=== PATIENT | female | born 1990 | race Caucasian/White ===

== ENCOUNTER 2017-01-07 20:04 | Emergency (ER) | payer OTHER ==
[2017-01-07] MEDS ORDERED: ACETAMINOPHEN 325 MG TABLET PO ONE (21:18)
[2017-01-07] MEDS ORDERED: ONDANSETRON 4 MG TAB.RAPDIS PO ONE (21:18)
--- NOTE | 2017-01-07 21:18 | ER Document Report ---
ED Medical Screen (RME) - General Stated Complaint: HEAD INJURY Mode of Arrival: Ambulatory Information source: Patient Notes: Patient states she hit her head on a freezer door. No loss of consciousness. Patient reports nausea but denies any vomiting. hx: None I have greeted and performed a rapid initial assessment of this patient. A comprehensive ED assessment and evaluation of the patient, analysis of test results and completion of the medical decision making process will be conducted by additional ED providers. TRAVEL OUTSIDE OF THE [place] IN LAST 30 DAYS: No - Related Data Allergies/Adverse Reactions: No Known Allergies Allergy (Verified 01/07/17 21:16) Past Medical History - Past Medical History Cardiac Medical History: Reports: Hx Hypertension - hx of not anymore Denies: Hx Coronary Artery Disease, Hx Heart Attack Pulmonary Medical History: Reports: Hx Bronchitis, Hx Pneumonia Denies: Hx Asthma, Hx COPD Neurological Medical History: Denies: Hx Cerebrovascular Accident, Hx Seizures Endocrine Medical History: Reports: Hx Diabetes Mellitus Type 2 Renal/ Medical History: Reports: Hx Ovarian Cysts - POC GI Medical History: Reports: Hx Irritable Bowel Musculoskeltal Medical History: Denies Hx Arthritis Psychiatric Medical History: Reports: Hx Anxiety, Hx Attention Deficit Hyperactivity Disorder - ADD, Hx Depression Past Surgical History: Reports: Hx Adenoidectomy, Hx Cholecystectomy, Hx Myringotomy, Hx Tonsillectomy. Denies: Hx Hysterectomy - Immunizations Immunizations up to date: Yes Hx Diphtheria, Pertussis, Tetanus Vaccination: Yes Physical Exam - Vital signs Vitals: Temp Pulse BP Pulse Ox 98.3 F 69 144/81 H 100 01/07/17 20:44 01/07/17 20:44 01/07/17 20:44 01/07/17 20:44 - Neurological Orientation: AAOx4 [place] Coma Scale Eye Opening: Spontaneous [place] Coma Scale Verbal: Oriented [place] Coma Scale Motor: Obeys Commands [place] Coma Scale Total: 15 Course - Vital Signs Vital signs: Temp Pulse Resp BP Pulse Ox 98.3 F 69 144/81 H 100 01/07/17 20:44 01/07/17 20:44 01/07/17 20:44 01/07/17 20:44
--- NOTE | 2017-01-08 01:57 | ER Document Report ---
ED General - General Chief Complaint: Head Injury without LOC Stated Complaint: HEAD INJURY Mode of Arrival: Ambulatory Notes: Patient is a 26-year-old female without past medical history, no use of anticoagulation who presents after she struck the right side of her head on the refrigerator door while at work. Since that she accidentally ran into the door and developed an immediate, constant, sharp pain to the area. States pain has gradually improved since that time without intervention. Nothing worsens the pain. States she became lightheaded when she hit her head but did not lose consciousness. No vomiting, weakness or numbness since that time. She has not seen her primary care doctor regarding today's episode. Denies any prior history of similar injury in the past. TRAVEL OUTSIDE OF THE [place] IN LAST 30 DAYS: No - Related Data Allergies/Adverse Reactions: No Known Allergies Allergy (Verified 01/07/17 21:16) Past Medical History - General Information source: Patient - Social History Smoking Status: Current Every Day Smoker Chew tobacco use (# tins/day): No Frequency of alcohol use: Social Drug Abuse: None Lives with: Family Family History: Reviewed & Not Pertinent, CAD, DM, Hyperlipidemia, Hypertension , Malignancy - Past Medical History Cardiac Medical History: Reports: Hx Hypertension - hx of not anymore Denies: Hx Coronary Artery Disease, Hx Heart Attack Pulmonary Medical History: Reports: Hx Bronchitis, Hx Pneumonia Denies: Hx Asthma, Hx COPD Neurological Medical History: Denies: Hx Cerebrovascular Accident, Hx Seizures Endocrine Medical History: Reports: Hx Diabetes Mellitus Type 2 Renal/ Medical History: Reports: Hx Ovarian Cysts - POC. Denies: Hx Peritoneal Dialysis GI Medical History: Reports: Hx Irritable Bowel Musculoskeltal Medical History: Denies Hx Arthritis Psychiatric Medical History: Reports: Hx Anxiety, Hx Attention Deficit Hyperactivity Disorder - ADD, Hx Depression Past Surgical History: Reports: Hx Adenoidectomy, Hx Cholecystectomy, Hx Myringotomy, Hx Tonsillectomy. Denies: Hx Hysterectomy - Immunizations Immunizations up to date: Yes Hx Diphtheria, Pertussis, Tetanus Vaccination: Yes Review of Systems - Review of Systems Notes: Constitutional: Negative for fever. Eyes: Negative for visual changes. ENT: Negative for facial injury Cardiovascular: Negative for chest injury. Respiratory: Negative for shortness of breath. Gastrointestinal: Negative for abdominal injury. Genitourinary: Negative for genital injury Musculoskeletal: Negative for back injury. Skin: Negative for laceration/abrasions. Neurological: Positive for head injury. Physical Exam - Vital signs Vitals: Temp Pulse BP Pulse Ox 98.3 F 69 144/81 H 100 01/07/17 20:44 01/07/17 20:44 01/07/17 20:44 01/07/17 20:44 Interpretation: Normal Notes: PHYSICAL EXAMINATION: GENERAL: Well-appearing, no acute distress. HEAD: Atraumatic, normocephalic. EYES: Pupils equal round and reactive to light, extraocular movements intact, sclera anicteric, conjunctiva are normal. ENT: nares patent, no oral pharyngeal trauma. No hemotympanum, no Mcgee's sign , no raccoon eyes. NECK: No midline cervical spine tenderness. Patient able to move their head to 45 bilaterally without any discomfort. LUNGS: Breath sounds clear to auscultation bilaterally and equal. No wheezes rales or rhonchi. HEART: Regular rate and rhythm without murmurs. EXTREMITIES: no pitting or edema. No long bone deformities. NEUROLOGICAL: Face symmetric. Tongue protrudes midline. Extraocular motions intact. Pupils are 2 mm and equally reactive. Normal speech, normal gait. 5 out of 5 strength in both the distal and proximal upper and lower extremities bilaterally. Sensation is grossly intact throughout. Finger to nose testing normal. Pronator drift normal. PSYCH: Normal mood, normal affect. SKIN: Warm, Dry, normal turgor, no rashes or lesions noted. Course - Re-evaluation Re-evalutation: 01/08/17 01:55 Presentation of head trauma in an otherwise well-appearing patient. No focal neurologic deficits on exam, no evidence of basilar skull fracture on exam without evidence of hemotympanum, raccoon eyes, or periauricular hematoma. No papilledema. Patient is not on anticoagulation. GCS is 15. No loss of consciousness. No episodes of vomiting. Patient is therefore negative via [place] head CT criteria and CT imaging will not be obtained at this time.At this time will discharge with return precautions and follow-up recommendations. Verbal discharge instructions given a the bedside and opportunity for questions given. Medication warnings reviewed. Patient is in agreement with this plan and has verbalized understanding of return precautions and the need for primary care follow-up in the next 24-72 hours. - Vital Signs Vital signs: Temp Pulse Resp BP Pulse Ox 97.8 F 79 16 128/73 H 99 01/08/17 02:27 01/08/17 02:27 01/08/17 02:27 01/08/17 02:27 01/08/17 02:27 Discharge - Discharge Clinical Impression: Head trauma Qualifiers: Encounter type: initial encounter Qualified Code(s): S09.90XA - Unspecified injury of head, initial encounter Condition: Good Disposition: HOME, SELF-CARE Additional Instructions: You have likely sustained a contusion (bruise) to your head. Symptoms to expect from a concussion include nausea, mild to moderate headache, difficulty concentrating or sleeping, and mild lightheadedness. These symptoms should improve over the next few days to weeks. Return to the emergency department or follow-up with your primary care doctor if your symptoms are not improving over this time. Signs of a more serious head injury include vomiting, severe headache, excessive sleepiness or confusion, and weakness or numbness in your face, arms or legs. Return immediately to the Emergency Department if you experience any of these more concerning symptoms. Rest, avoid strenuous physical or mental activity, and avoid activities that could potentially result in another head injury until all your symptoms from this head injury are completely resolved for at least 2-3 weeks. If you participate in sports, get cleared by your doctor or senior trainer before returning to play. You may take ibuprofen or acetaminophen over the counter according to label instructions for mild headache or scalp soreness. Forms: Return to Work
[2017-01-08 02:28] VITALS: BP 128/73
== END 2017-01-08 02:30 | disposition home or self-care (01) ==
LOC: ER 20:04
DX: S09.90XA Unspecified injury of head, initial encounter (principal); W22.09XA Striking against other stationary object, initial encounter; Y99.0 Civilian activity done for income or pay; R42 Dizziness and giddiness; I10 Essential (primary) hypertension; E11.9 Type 2 diabetes mellitus without complications; F17.200 Nicotine dependence, unspecified, uncomplicated
CPT/HCPCS: 99283; S0119

== ENCOUNTER 2017-02-11 11:23 | Emergency (ER) | payer OTHER ==
--- NOTE | 2017-02-11 11:27 | ER Document Report ---
ED Medical Screen (RME) - General Mode of Arrival: Ambulatory Information source: Patient TRAVEL OUTSIDE OF THE [place] IN LAST 30 DAYS: No - General Stated Complaint: RIGHT SHOULDER PAIN Notes: Patient presents emergency department with complaints of right shoulder pain for the past couple weeks. Denies trauma. 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 I have greeted and performed a rapid initial assessment of this patient. A comprehensive ED assessment and evaluation of the patient, analysis of test results and completion of the medical decision making process will be conducted by additional ED providers. (CHIO ALEXANDRA) - Related Data Allergies/Adverse Reactions: No Known Allergies Allergy (Verified 02/11/17 11:27) Past Medical History - Past Medical History Cardiac Medical History: Reports: Hx Hypertension - hx of not anymore Denies: Hx Coronary Artery Disease, Hx Heart Attack Pulmonary Medical History: Reports: Hx Bronchitis, Hx Pneumonia Denies: Hx Asthma, Hx COPD Neurological Medical History: Denies: Hx Cerebrovascular Accident, Hx Seizures Endocrine Medical History: Reports: Hx Diabetes Mellitus Type 2 Renal/ Medical History: Reports: Hx Ovarian Cysts - POC. Denies: Hx Peritoneal Dialysis GI Medical History: Reports: Hx Irritable Bowel Musculoskeltal Medical History: Denies Hx Arthritis Psychiatric Medical History: Reports: Hx Anxiety, Hx Attention Deficit Hyperactivity Disorder - ADD, Hx Depression Past Surgical History: Reports: Hx Adenoidectomy, Hx Cholecystectomy, Hx Myringotomy, Hx Tonsillectomy. Denies: Hx Hysterectomy - Immunizations Immunizations up to date: Yes Hx Diphtheria, Pertussis, Tetanus Vaccination: Yes Doctor's Discharge - Discharge Clinical Impression: Neuropathy Condition: Stable Disposition: HOME, SELF-CARE Additional Instructions: You have been seen and evaluated for neck pain shoulder pain elbow pain and wrist pain. You have a history of problems with your neck before he got that they wanted to do an MRI for. I believe that you have a pinched nerve somewhere from your neck down anterior hand. You have no acute vascular compromise suggesting that the vein or the artery is compromised. I want you to follow back up with your primary care physician this week that had ordered the previous EMG, and ascertain whether or not you need to have an MRI of your neck. Return to the emergency department sooner for increasing worsening or new symptoms
[2017-02-11 11:28] VITALS: BP 152/94
--- NOTE | 2017-02-11 11:45 | ER Document Report ---
ED Extremity Problem, Upper - General Time seen by provider: 11:45 Mode of Arrival: Ambulatory Information source: Patient TRAVEL OUTSIDE OF THE [place] IN LAST 30 DAYS: No - HPI Patient complains to provider of: Pain, Right, Arm, Elbow, Hand, Shoulder Onset: Other - see HPI note Associated symptoms: Numbness, Tingling Exacerbated by: Movement, Exertion - General Chief Complaint: Shoulder Pain Stated Complaint: RIGHT SHOULDER PAIN Notes: Patient is a 26 year old female presenting to the ED for a burning, numbness, and tingling sensation in her right arm. Patient states that her arm "falls asleep" all the time and goes numb into her fingers (thumb, index, and middle). Patient states that she uses her right arm a lot at work. Patient states her symptoms were worse while she was . Patient states her pain also gets worse with movement and use of her arm. Patient states the pain and numbness radiates from her shoulder down into her fingers. Patient's pain wakes her up at night. patient denies any weakness, blue fingers, or cold fingers. Patient has a history of neck problems and states she is supposed to get and MRI. Patient has not gotten this yet because she was . Patient has no known allergies. (FERMÍN MORSE) - Related Data Allergies/Adverse Reactions: No Known Allergies Allergy (Verified 02/11/17 11:27) Past Medical History - General Information source: Patient - Social History Smoking Status: Current Every Day Smoker Chew tobacco use (# tins/day): No Frequency of alcohol use: Social Drug Abuse: None Family History: Reviewed & Not Pertinent, CAD, DM, Hyperlipidemia, Hypertension , Malignancy Patient has suicidal ideation: No Patient has homicidal ideation: No - Past Medical History Cardiac Medical History: Reports: Hx Hypertension - hx of not anymore Pulmonary Medical History: Reports: Hx Bronchitis, Hx Pneumonia Endocrine Medical History: Reports: Hx Diabetes Mellitus Type 2 Renal/ Medical History: Reports: Hx Ovarian Cysts - POC GI Medical History: Reports: Hx Irritable Bowel Psychiatric Medical History: Reports: Hx Anxiety, Hx Attention Deficit Hyperactivity Disorder - ADD, Hx Depression Past Surgical History: Reports: Hx Adenoidectomy, Hx Cholecystectomy, Hx Myringotomy, Hx Tonsillectomy - Immunizations Immunizations up to date: Yes Hx Diphtheria, Pertussis, Tetanus Vaccination: Yes Review of Systems - Review of Systems Constitutional: No symptoms reported EENT: No symptoms reported Cardiovascular: No symptoms reported Respiratory: No symptoms reported Gastrointestinal: No symptoms reported Genitourinary: No symptoms reported Female Genitourinary: No symptoms reported Musculoskeletal: See HPI Skin: No symptoms reported Hematologic/Lymphatic: No symptoms reported Neurological/Psychological: See HPI, Numbness, Tingling -: Yes All other systems reviewed and negative Physical Exam - Vital signs Interpretation: Normal - General General appearance: Appears well, Alert In distress: Mild - HEENT Head: Normocephalic, Atraumatic Eyes: Normal Pupils: PERRL Mucous membranes: Moist - Respiratory Respiratory status: No respiratory distress Chest status: Nontender Breath sounds: Normal Chest palpation: Normal - Cardiovascular Rhythm: Regular Heart sounds: Normal auscultation Murmur: No - Abdominal Inspection: Normal Distension: No distension Bowel sounds: Normal Tenderness: Nontender Organomegaly: No organomegaly - Back Back: Normal, Nontender - Extremities General upper extremity: Normal inspection, Normal ROM, Normal strength General lower extremity: Normal inspection, Normal ROM, Normal strength - Neurological Neuro grossly intact: Yes Cognition: Normal Orientation: AAOx4 [place] Coma Scale Eye Opening: Spontaneous [place] Coma Scale Verbal: Oriented [place] Coma Scale Motor: Obeys Commands [place] Coma Scale Total: 15 Speech: Normal Sensory: Normal - Psychological Associated symptoms: Normal affect, Normal mood - Skin Skin Temperature: Warm Skin Moisture: Dry Discharge - Discharge Clinical Impression: Neuropathy Condition: Stable Disposition: HOME, SELF-CARE Additional Instructions: You have been seen and evaluated for neck pain shoulder pain elbow pain and wrist pain. You have a history of problems with your neck before he got that they wanted to do an MRI for. I believe that you have a pinched nerve somewhere from your neck down anterior hand. You have no acute vascular compromise suggesting that the vein or the artery is compromised. I want you to follow back up with your primary care physician this week that had ordered the previous EMG, and ascertain whether or not you need to have an MRI of your neck. Return to the emergency department sooner for increasing worsening or new symptoms Scribe Documentation - Scribe Written by Naomie:: Fermín Morse 02/11/17 17:22 acting as scribe for :: Cb
== END 2017-02-11 12:33 | disposition home or self-care (01) ==
LOC: ER 11:23
DX: E11.40 Type 2 diabetes mellitus with diabetic neuropathy, unspecified (principal); R20.0 Anesthesia of skin; R20.2 Paresthesia of skin; F17.200 Nicotine dependence, unspecified, uncomplicated
CPT/HCPCS: 99283

== ENCOUNTER 2017-02-21 10:41 | Emergency (ER) | payer OTHER ==
--- NOTE | 2017-02-21 11:46 | ER Document Report ---
ED Medical Screen (RME) - General Chief Complaint: Syncope Stated Complaint: BACK,NECK PAIN Notes: This 26-year-old female patient reports passing out twice when standing. 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 She is scheduled for a spine MRI next week [facility]. Last night she "felt like I would pass out and rushed to the bed", she fell onto her bed. This morning she felt similarly and fell into her mother's arms. She complains of feeling weak and rubbery. I have greeted and performed a rapid initial assessment of this patient. A comprehensive ED assessment and evaluation of the patient, analysis of test results and completion of the medical decision making process will be conducted by additional ED providers. TRAVEL OUTSIDE OF THE [place] IN LAST 30 DAYS: No - Related Data Allergies/Adverse Reactions: No Known Allergies Allergy (Verified 02/21/17 11:14) Home Medications: Current Home Medications Cyclobenzaprine HCl 10 mg PO QHS 02/21/17 [History] Past Medical History - Past Medical History Cardiac Medical History: Reports: Hx Hypertension - hx of not anymore Denies: Hx Coronary Artery Disease, Hx Heart Attack Pulmonary Medical History: Reports: Hx Bronchitis, Hx Pneumonia Denies: Hx Asthma, Hx COPD Neurological Medical History: Denies: Hx Cerebrovascular Accident, Hx Seizures Endocrine Medical History: Reports: Hx Diabetes Mellitus Type 2 Renal/ Medical History: Reports: Hx Ovarian Cysts - POC. Denies: Hx Peritoneal Dialysis GI Medical History: Reports: Hx Irritable Bowel Musculoskeltal Medical History: Denies Hx Arthritis Psychiatric Medical History: Reports: Hx Anxiety, Hx Attention Deficit Hyperactivity Disorder - ADD, Hx Depression Past Surgical History: Reports: Hx Adenoidectomy, Hx Cholecystectomy, Hx Myringotomy, Hx Tonsillectomy. Denies: Hx Hysterectomy - Immunizations Immunizations up to date: Yes Hx Diphtheria, Pertussis, Tetanus Vaccination: Yes Physical Exam - Vital signs Vitals: Temp Pulse Resp BP Pulse Ox 99.0 F 95 16 131/77 H 97 02/21/17 11:15 02/21/17 11:15 02/21/17 11:15 02/21/17 11:15 02/21/17 11:15 Course - Vital Signs Vital signs: Temp Pulse Resp BP Pulse Ox 99.0 F 95 16 131/77 H 97 02/21/17 11:15 02/21/17 11:15 02/21/17 11:15 02/21/17 11:15 02/21/17 11:15
[2017-02-21 12:32] LABS: ABSOLUTE BASOPHILS # (AUTO) 0.1 10^3/uL (0.0-0.2); ABSOLUTE EOSINOPHILS # (AUTO) 0.2 10^3/uL (0.0-0.6); ABSOLUTE LYMPHOCYTES (AUTO) 3.3 10^3/uL (0.5-4.7); ABSOLUTE MONOCYTES (AUTO) 0.6 10^3/uL (0.1-1.4); ABSOLUTE NEUT (AUTO) 7.4 10^3/uL (1.7-8.2); BASOPHILS % (AUTO) 0.5 % (0-2); EOSINOPHILS % (AUTO) 1.6 % (0-6); HEMATOCRIT 44.2 % (36.0-47.0); HEMOGLOBIN 14.7 g/dL (12.0-15.5); HGB HCT DIFFERENCE -0.1; LYMPHOCYTES % (AUTO) 28.6 % (13-45); MEAN CORPUSCULAR HEMOGLOBIN 29.9 pg (27.0-33.4); MEAN CORPUSCULAR HGB CONC 33.3 g/dL (32.0-36.0); MEAN CORPUSCULAR VOLUME 90 fl (80-97); MONOCYTES % (AUTO) 5.1 % (3-13); RED BLOOD COUNT 4.91 10^6/uL (3.72-5.28); RED CELL DISTRIBUTION WIDTH 13.9 % (11.5-14.0); SEGMENTED NEUTROPHILS % (AUTO) 64.2 % (42-78); WHITE BLOOD COUNT 11.5 10^3/uL (4.0-10.5)
[2017-02-21 12:44] LABS: ALANINE AMINOTRANSFERASE 23 U/L (9-52); ALBUMIN 3.9 g/dL (3.5-5.0); ALKALINE PHOSPHATASE 60 U/L (38-126); ANION GAP 7 (5-19); APPEARANCE,URINE SLIGHTLY-CLOUDY; ASPARTATE AMINO TRANSFERASE 13 U/L (14-36); BILIRUBIN,DIRECT 0.1 mg/dL (0.0-0.4); BILIRUBIN,TOTAL 0.3 mg/dL (0.2-1.3); BILIRUBIN,URINE NEGATIVE (NEGATIVE); BLOOD UREA NITROGEN 12 mg/dL (7-20); CALCIUM 9.3 mg/dL (8.4-10.2); CARBON DIOXIDE 29 mmol/L (22-30); CHLORIDE 106 mmol/L (98-107); CREATININE RESULT 0.79 mg/dL (0.52-1.25); GLUCOSE 86 mg/dL (75-110); GLUCOSE, URINE NEGATIVE (NEGATIVE); KETONES,URINE NEGATIVE (NEGATIVE); LEUKOCYTE ESTERASE,URINE TRACE (NEGATIVE); NITRITE,URINE POSITIVE (NEGATIVE); POTASSIUM 4.1 mmol/L (3.6-5.0); PROTEIN,URINE NEGATIVE (NEGATIVE); SODIUM 142.4 mmol/L (137-145); TOTAL PROTEIN 6.6 g/dL (6.3-8.2); URINE SPECIFIC GRAVITY 1.031; UROBILINOGEN,URINE NEGATIVE mg/dL (<2.0)
--- NOTE | 2017-02-21 13:08 | ER Document Report ---
ED Syncope and Near Syncope - General Chief Complaint: Syncope Stated Complaint: BACK,NECK PAIN Time Seen by Provider: 02/21/17 11:41 Mode of Arrival: Ambulatory Information source: Patient TRAVEL OUTSIDE OF THE [place] IN LAST 30 DAYS: No - HPI Patient complains to provider of: Fainting Episode witnessed (by whom): Yes - BY PARENT Multiple episodes (how many): 3 When did episodes begin: LAST PM (ONCE) When was most recent episode: THIS AM (ONE NEAR-SYNCOPE AND ONE FULL SYNCOPE Symptoms prior to episode: Dizziness, Lightheaded, Visual disturbance - BLURRED. No: Abdominal pain, Chest pain, Chills, Diarrhea, Fever, Headache, Nausea/vomiting, Palpitations, Racing heart, Short of breath, Sweaty Position/Activity at time of episode: Standing Details of activity: TWICE, HAD JUST GOTTEN UP FROM SITTING Quality of pain: No pain Context: Became unresponsive, Collapsed. denies: Incontinent of stool, Incontinent of urine, , Seizure activity observed Duration of LOC (min): 1 Injury location: None Current symptoms: None/feels back to normal Similar symptoms previously: Yes - YEARS AGO Recently seen / treated by doctor: Yes - Related Data Allergies/Adverse Reactions: No Known Allergies Allergy (Verified 02/21/17 11:14) Home Medications: Current Home Medications Cyclobenzaprine HCl 10 mg PO QHS 02/21/17 [History] Past Medical History - General Information source: Patient, Parent - Social History Smoking Status: Unknown if Ever Smoked Cigarette use (# per day): No Chew tobacco use (# tins/day): No Frequency of alcohol use: None Drug Abuse: None Lives with: Family Family History: Reviewed & Not Pertinent, CAD, DM, Hyperlipidemia, Hypertension , Malignancy - Past Medical History Cardiac Medical History: Reports: Hx Hypertension - hx of not anymore Denies: Hx Coronary Artery Disease, Hx Heart Attack Pulmonary Medical History: Reports: Hx Bronchitis, Hx Pneumonia Denies: Hx Asthma, Hx COPD Neurological Medical History: Denies: Hx Cerebrovascular Accident, Hx Seizures Endocrine Medical History: Reports: Hx Diabetes Mellitus Type 2 Renal/ Medical History: Reports: Hx Ovarian Cysts - POC. Denies: Hx Peritoneal Dialysis GI Medical History: Reports: Hx Irritable Bowel Musculoskeltal Medical History: Denies Hx Arthritis Psychiatric Medical History: Reports: Hx Anxiety, Hx Attention Deficit Hyperactivity Disorder - ADD, Hx Depression Past Surgical History: Reports: Hx Adenoidectomy, Hx Cholecystectomy, Hx Myringotomy, Hx Tonsillectomy. Denies: Hx Hysterectomy - Immunizations Immunizations up to date: Yes Hx Diphtheria, Pertussis, Tetanus Vaccination: Yes Physical Exam - Vital signs Vitals: Temp Pulse Resp BP Pulse Ox 99.0 F 95 16 131/77 H 97 02/21/17 11:15 02/21/17 11:15 02/21/17 11:15 02/21/17 11:15 02/21/17 11:15 Interpretation: Normal. No: Tachycardic, Tachypneic, Febrile Course - Vital Signs Vital signs: Temp Pulse Resp BP Pulse Ox 99.0 F 78 16 129/76 H 97 02/21/17 11:15 02/21/17 13:27 02/21/17 11:15 02/21/17 13:27 02/21/17 11:15 - Laboratory Result Diagrams: 02/21/17 12:12 02/21/17 12:12 Laboratory results interpreted by me: 02/21/17 02/21/17 02/21/17 12:12 12:12 12:12 WBC 11.5 H AST 13 L Urine Nitrite POSITIVE H Ur Leukocyte Esterase TRACE H - EKG Interpretation by Sd EKG shows normal: Sinus rhythm, [place], Intervals, QRS Complexes, ST-T Waves Rate: Normal Rhythm: NSR Discharge - Discharge Clinical Impression: Syncope Qualifiers: Syncope type: vasovagal syncope Qualified Code(s): R55 - Syncope and collapse Urinary tract infection Qualifiers: Urinary tract infection type: acute cystitis Hematuria presence: without hematuria Qualified Code(s): N30.00 - Acute cystitis without hematuria Condition: Stable Disposition: HOME, SELF-CARE Instructions: Nitrofurantoin ([facility]), Urinary Tract Infection ([facility]), Syncopal Episode ([facility]) Additional Instructions: REST, DRINK PLENTY OF FLUIDS. MEDS DIRECTED. BE CARFUL WHEN YOU STAND UP, BE PREPARED TO SIT DOWN QUICKLY IF YOU FEEL FAINTY. FOLLOW UP WITH YOUR PRIMARY CARE PROVIDER. RETURN TO E.R. IF PROBLEMS. Prescriptions: Nitrofurantoin/Nitrofuran Mac [Macrobid 100 mg Capsule] 100 mg PO BID #20 capsule
[2017-02-21] MEDS ORDERED: NITROFURANTOIN MONOHYD/M-CRYST 100 MG CAPSULE PO ONE (15:04)
[2017-02-21 15:44] VITALS: BP 116/68
--- NOTE | 2017-02-21 22:08 | EKG REPORT ---
SEVERITY:- NORMAL ECG - SINUS RHYTHM : Confirmed by: Heather Reid MD 21-Feb-2017 22:07:04
== END 2017-02-21 15:35 | disposition home or self-care (01) ==
LOC: ER 10:41
DX: R55 Syncope and collapse (principal); N30.00 Acute cystitis without hematuria; M54.9 Dorsalgia, unspecified; R42 Dizziness and giddiness; I10 Essential (primary) hypertension; E11.9 Type 2 diabetes mellitus without complications; Z90.49 Acquired absence of other specified parts of digestive tract
CPT/HCPCS: 93005; 99284; 36415; 87086; 84443; 84703; 85025; 87088; 80053; 81001; 87186; 93010; J8499

== ENCOUNTER 2017-03-11 03:07 | Emergency (ER) | payer OTHER ==
--- NOTE | 2017-03-11 03:35 | ER Document Report ---
ED GI/ - General Chief Complaint: Epigastric Pain Stated Complaint: ABDOMINAL PAIN Notes: The patient is a 26-year-old female, past medical history former alcoholic, presents with 45 minutes of epigastric pain after she drank 7 alcoholic beverages tonight. She says this happens when she drinks sugary drinks. She panicked and called 911. On arrival to the emergency room, she has no abdominal pain at this time and denies nausea, vomiting, urinary symptoms, chest pain, shortness of breath, flank pain or fevers. TRAVEL OUTSIDE OF THE [place] IN LAST 30 DAYS: No - Related Data Allergies/Adverse Reactions: No Known Allergies Allergy (Verified 02/21/17 11:14) Past Medical History - General Information source: Patient - Social History Smoking Status: Never Smoker Frequency of alcohol use: None Family History: Reviewed & Not Pertinent, CAD, DM, Hyperlipidemia, Hypertension , Malignancy - Past Medical History Cardiac Medical History: Reports: Hx Hypertension - hx of not anymore Denies: Hx Coronary Artery Disease, Hx Heart Attack Pulmonary Medical History: Reports: Hx Bronchitis, Hx Pneumonia Denies: Hx Asthma, Hx COPD Neurological Medical History: Denies: Hx Cerebrovascular Accident, Hx Seizures Endocrine Medical History: Reports: Hx Diabetes Mellitus Type 2 Renal/ Medical History: Reports: Hx Ovarian Cysts - POC. Denies: Hx Peritoneal Dialysis GI Medical History: Reports: Hx Irritable Bowel Musculoskeltal Medical History: Denies Hx Arthritis Psychiatric Medical History: Reports: Hx Anxiety, Hx Attention Deficit Hyperactivity Disorder - ADD, Hx Depression Past Surgical History: Reports: Hx Adenoidectomy, Hx Cholecystectomy, Hx Myringotomy, Hx Tonsillectomy. Denies: Hx Hysterectomy - Immunizations Immunizations up to date: Yes Hx Diphtheria, Pertussis, Tetanus Vaccination: Yes Review of Systems - Review of Systems Notes: REVIEW OF SYSTEMS: CONSTITUTIONAL: -fevers, -chills EENT: -eye pain, -difficulty swallowing, -nasal congestion CARDIOVASCULAR:-chest pain, -syncope. RESPIRATORY: -cough, -SOB GASTROINTESTINAL: -abdominal pain, - nausea, -vomiting, -diarrhea GENITOURINARY: -dysuria, -hematuria MUSCULOSKELETAL: -back pain, -neck pain SKIN: -rash or skin lesions. HEMATOLOGIC: -easy bruising or bleeding. LYMPHATIC: -swollen, enlarged glands. NEUROLOGICAL: -altered mental status or loss of consciousness, -headache, - neurologic symptoms PSYCHIATRIC: -anxiety, -depression. ALL OTHER SYSTEMS REVIEWED AND NEGATIVE. Physical Exam - Notes Notes: PHYSICAL EXAMINATION: GENERAL: Well-appearing, well-nourished and in no acute distress. HEAD: Atraumatic, normocephalic. EYES: Pupils equal round and reactive to light, extraocular movements intact, sclera anicteric, conjunctiva are normal. ENT: nares patent, oropharynx clear without exudates. Moist mucous membranes. NECK: Normal range of motion, supple without lymphadenopathy LUNGS: Breath sounds clear to auscultation bilaterally and equal. No wheezes rales or rhonchi. HEART: Regular rate and rhythm without murmurs ABDOMEN: Soft, nontender, normoactive bowel sounds. No guarding, no rebound. No masses appreciated. EXTREMITIES: Normal range of motion, no pitting or edema. No cyanosis. NEUROLOGICAL: Cranial nerves grossly intact. Normal speech, normal gait. Normal sensory, motor, and reflex exams. PSYCH: Normal mood, normal affect. SKIN: Warm, Dry, normal turgor, no rashes or lesions noted. Course - Re-evaluation Re-evalutation: Patient has no symptoms at this time. Abdominal exam is completely nontender. Mom is in emergency room with her and will take her home. She is ambulating with a steady gait. Counseled her about alcohol abuse. Symptoms most likely alcohol gastritis and instructed her to the use Pepcid if the symptoms return with follow-up at her primary care physician. Discharge - Discharge Clinical Impression: Gastritis without bleeding due to alcohol Qualifiers: Chronicity: acute Qualified Code(s): K29.20 - Alcoholic gastritis without bleeding Condition: Good Disposition: HOME, SELF-CARE Additional Instructions: Gastritis You have an inflammation of the stomach called gastritis. This commonly causes upper abdominal pain, nausea, and vomiting. In severe cases, bleeding of the stomach lining can occur. Gastritis can be caused by bacteria or viruses , alcohol, or stomach-irritating drugs. Begin with sips of clear liquids. Take increasing amounts of fluid over the first 24 hours. Then start small amounts of bland foods (such as dry toast , applesauce, mashed potato). Gradually resume your usual diet. You should take antacids every two hours until the pain has subsided. Acid -suppressing drugs may be prescribed as well. Avoid aspirin, caffeine, tobacco , and alcohol. If the abdominal pain worsens, or there is evidence of major bleeding in the stomach (such as black, tarry stool, bloody or black vomit, or lightheadedness), you should return immediately. Call the doctor if you aren't improved in 24 to 36 hours. ACUTE ALCOHOL INTOXICATION and ALCOHOL ABUSE: Your evaluation revealed very high levels of alcohol. You can from drinking a large amount of alcohol rapidly! Further, there's the risk of falls , traffic accidents, and fights. A high portion (about 50 percent) of the serious injuries seen in hospital emergency rooms are caused by alcohol. Alcohol overdosage is usually due to an underlying emotional or psychiatric problem. You may benefit from counselling. If "binge" drinking is an ongoing problem for you, or if you drink ANY AMOUNT of alcohol EVERY day, you most likely have a tendency to alcoholism. You should avoid alcohol totally. We can refer you for treatment. Persons with alcohol problems are often also prone to other addictions -- you should discuss any use of medications or drugs with the doctor. You should be watched at home for the next several hours by someone who has not been drinking. Get extra fluids for the next 24 hours. Call the doctor if there is repeated vomiting, increasing headache, decreasing level of alertness, or any other worsening. CHRONIC ALCOHOLISM and ALCOHOL ABUSE: Your evaluation reveals evidence of chronic alcoholism, an addiction to alcohol. The tendency to alcoholism may be inherited. Chronic use of alcohol weakens muscles, causes fatty deposits in the liver , damages the stomach, makes you more prone to infections, and can cause defects in unborn children. In the long run, brain atrophy and cirrhosis of the liver result. You are also at greater risk for certain types of cancer, such as cancer of the mouth, throat, stomach, and liver. Counselling services are available to help you. In-hospital treatment programs often help. Support groups such as Alcoholics Anonymous can be very useful in beating this addiction. Your physician can make a referral for you. As alcoholics often are prone to other addictions, you should discuss your use of any other medications with the doctor. FOLLOW-UP CARE: If you have been referred to a physician for follow-up care, call the physician s office for an appointment as you were instructed or within the next two days. If you experience worsening or a significant change in your symptoms, notify the physician immediately or return to the Emergency Department at any time for re-evaluation.
== END 2017-03-11 03:43 | disposition home or self-care (01) ==
LOC: ER 03:07
DX: K29.20 Alcoholic gastritis without bleeding (principal); R10.13 Epigastric pain; F10.10 Alcohol abuse, uncomplicated
CPT/HCPCS: 99284

== ENCOUNTER 2017-04-16 15:48 | Emergency (ER) | payer OTHER ==
--- NOTE | 2017-04-16 18:42 | ER Document Report ---
ED Syncope and Near Syncope - General Chief Complaint: Syncope Stated Complaint: POSSIBLE SYNCOPE Time Seen by Provider: 04/16/17 18:19 Mode of Arrival: Medic Information source: Patient, Parent TRAVEL OUTSIDE OF THE [place] IN LAST 30 DAYS: No - HPI Patient complains to provider of: Fainting Episode witnessed (by whom): Yes Multiple episodes (how many): 6 When did episodes begin: 6 months ago When was most recent episode: just [employer] Symptoms prior to episode: Back pain, Palpitations, Other - neck pain Quality of pain: Achy Severity: Moderate Pain Level: 2 Context: Became unresponsive, Collapsed Injury location: None Current symptoms: None/feels back to normal Similar symptoms previously: Yes Recently seen / treated by doctor: Yes Notes: Patient is a 26-year-old female who presents to the emergency room via EMS for syncopal episodes 6 today, she has been having syncopal episodes over the past 6 months, she, no particular pneumonia, she does report preceding symptoms of neck and back pain as well as palpitations, she denies any injury today, she does report a history of a trampoline accident approximately 6 years ago when she fell off and lost consciousness, injuring her neck and shoulder at the time , she did not seek out medical care at the time but has had chronic neck and shoulder pain since, with herniated disks in the neck, she has an appointment with a neurosurgeon on May 09, she is also been seen by a water taxi operator and is waiting for a Holter monitor to come in the mail, she did have increased frequency of these episodes during a previous but denies being at this time other is at bedside and has witnessed several of these episodes, states they last anywhere from 1-5 minutes, she just slumps over at the time, she appears pale and her pupils are constricted when she awakens, and she is also very tired after an episode but no seizure activity has been observed - Related Data Allergies/Adverse Reactions: No Known Allergies Allergy (Verified 02/21/17 11:14) Past Medical History - General Information source: Patient - Social History Smoking Status: Current Every Day Smoker Family History: Reviewed & Not Pertinent, CAD, DM, Hyperlipidemia, Hypertension , Malignancy - Past Medical History Cardiac Medical History: Reports: Hx Hypertension - hx of not anymore Denies: Hx Coronary Artery Disease, Hx Heart Attack Pulmonary Medical History: Reports: Hx Bronchitis, Hx Pneumonia Denies: Hx Asthma, Hx COPD Neurological Medical History: Denies: Hx Cerebrovascular Accident, Hx Seizures Endocrine Medical History: Reports: Hx Diabetes Mellitus Type 2 Renal/ Medical History: Reports: Hx Ovarian Cysts - POC. Denies: Hx Peritoneal Dialysis GI Medical History: Reports: Hx Irritable Bowel Musculoskeltal Medical History: Denies Hx Arthritis Psychiatric Medical History: Reports: Hx Anxiety, Hx Attention Deficit Hyperactivity Disorder - ADD, Hx Depression Past Surgical History: Reports: Hx Adenoidectomy, Hx Cholecystectomy, Hx Myringotomy, Hx Tonsillectomy. Denies: Hx Hysterectomy - Immunizations Immunizations up to date: Yes Hx Diphtheria, Pertussis, Tetanus Vaccination: Yes Review of Systems - Review of Systems Constitutional: No symptoms reported EENT: No symptoms reported Cardiovascular: Palpitations, Syncope Respiratory: No symptoms reported Gastrointestinal: No symptoms reported Genitourinary: No symptoms reported Female Genitourinary: No symptoms reported Musculoskeletal: Back pain, Neck pain Skin: No symptoms reported Hematologic/Lymphatic: No symptoms reported Neurological/Psychological: No symptoms reported -: Yes All other systems reviewed and negative Physical Exam - Vital signs Vitals: Temp Pulse Resp BP Pulse Ox 99 F 87 18 134/82 H 100 04/16/17 15:52 04/16/17 15:52 04/16/17 15:52 04/16/17 15:52 04/16/17 15:52 Interpretation: Normal - General General appearance: Appears well, Alert - HEENT Head: Normocephalic, Atraumatic Eyes: Normal Pupils: PERRL - Respiratory Respiratory status: No respiratory distress Chest status: Nontender Breath sounds: Normal Chest palpation: Normal - Cardiovascular Rhythm: Regular Heart sounds: Normal auscultation Murmur: No - Abdominal Inspection: Normal Distension: No distension Bowel sounds: Normal Tenderness: Nontender Organomegaly: No organomegaly - Back Back: Normal, Nontender - Extremities General upper extremity: Normal inspection, Nontender, Normal color, Normal ROM , Normal temperature General lower extremity: Normal inspection, Nontender, Normal color, Normal ROM , Normal temperature, Normal weight bearing. No: Edxter's sign - Neurological Neuro grossly intact: Yes Cognition: Normal Orientation: AAOx4 [place] Coma Scale Eye Opening: Spontaneous [place] Coma Scale Verbal: Oriented [place] Coma Scale Motor: Obeys Commands [place] Coma Scale Total: 15 Speech: Normal Motor strength normal: LUE, RUE, LLE, RLE Sensory: Normal - Psychological Associated symptoms: Normal affect, Normal mood - Skin Skin Temperature: Warm Skin Moisture: Dry Skin Color: Normal Course - Re-evaluation Re-evalutation: 04/16/17 21:15 And imaging findings were discussed with patient at bedside, she is noted to have mucosal thickening, she does report sinus congestion, she also has bacteria in her urine, will be started on Levaquin for antibiotics, advised to follow-up with a neurologist and a water taxi operator as well as her primary care provider, return if symptoms worsen, patient acknowledges understanding and agreement with this plan - Vital Signs Vital signs: Temp Pulse Resp BP Pulse Ox 99 F 65 22 H 131/63 H 100 04/16/17 15:52 04/16/17 18:55 04/16/17 20:01 04/16/17 20:01 04/16/17 20:01 - Laboratory Result Diagrams: 04/16/17 18:56 04/16/17 18:56 Laboratory results interpreted by me: 04/16/17 04/16/17 18:56 19:08 WBC 11.3 H Urine Blood SMALL H Urine Nitrite POSITIVE H Ur Leukocyte Esterase TRACE H - Diagnostic Test Radiology reviewed: Image reviewed, Reports reviewed - EKG Interpretation by Me EKG shows normal: Sinus rhythm Rate: Normal Rhythm: NSR Discharge - Discharge Clinical Impression: Syncope Qualifiers: Syncope type: unspecified Qualified Code(s): R55 - Syncope and collapse Sinusitis Qualifiers: Sinusitis location: maxillary Chronicity: acute Recurrence: non-recurrent Qualified Code(s): J01.00 - Acute maxillary sinusitis, unspecified Urinary tract infection Qualifiers: Urinary tract infection type: site unspecified Hematuria presence: without hematuria Qualified Code(s): N39.0 - Urinary tract infection, site not specified Condition: Stable Disposition: HOME, SELF-CARE Instructions: Urinary Tract Infection ([facility]), Sinusitis ([facility]), Syncopal Episode ([facility]) Additional Instructions: Follow-up with your primary care provider, water taxi operator and neurosurgeon within the next week. Return to the emergency room immediately if symptoms worsen or any additional concerns. Prescriptions: Levofloxacin [Levaquin 500 mg Tablet] 500 mg PO DAILY #7 tablet Forms: Return to Work
[2017-04-16 19:09] LABS: ABSOLUTE BASOPHILS # (AUTO) 0.1 10^3/uL (0.0-0.2); ABSOLUTE EOSINOPHILS # (AUTO) 0.3 10^3/uL (0.0-0.6); ABSOLUTE LYMPHOCYTES (AUTO) 4.1 10^3/uL (0.5-4.7); ABSOLUTE MONOCYTES (AUTO) 0.6 10^3/uL (0.1-1.4); ABSOLUTE NEUT (AUTO) 6.2 10^3/uL (1.7-8.2); BASOPHILS % (AUTO) 0.6 % (0-2); HEMATOCRIT 41.7 % (36.0-47.0); HEMOGLOBIN 13.7 g/dL (12.0-15.5); HGB HCT DIFFERENCE -0.6; LYMPHOCYTES % (AUTO) 36.5 % (13-45); MEAN CORPUSCULAR HEMOGLOBIN 29.7 pg (27.0-33.4); MEAN CORPUSCULAR VOLUME 90 fl (80-97); MONOCYTES % (AUTO) 5.4 % (3-13); RED BLOOD COUNT 4.63 10^6/uL (3.72-5.28); SEGMENTED NEUTROPHILS % (AUTO) 54.5 % (42-78); WHITE BLOOD COUNT 11.3 10^3/uL (4.0-10.5)
[2017-04-16 19:24] LABS: APPEARANCE,URINE SLIGHTLY-CLOUDY; BILIRUBIN,URINE NEGATIVE (NEGATIVE); GLUCOSE, URINE NEGATIVE (NEGATIVE); KETONES,URINE NEGATIVE (NEGATIVE); LEUKOCYTE ESTERASE,URINE TRACE (NEGATIVE); NITRITE,URINE POSITIVE (NEGATIVE); PROTEIN,URINE NEGATIVE (NEGATIVE); URINE SPECIFIC GRAVITY 1.023; UROBILINOGEN,URINE NEGATIVE mg/dL (<2.0)
[2017-04-16 19:32] LABS: ALANINE AMINOTRANSFERASE 36 U/L (9-52); ALBUMIN 3.8 g/dL (3.5-5.0); ALKALINE PHOSPHATASE 70 U/L (38-126); ANION GAP 10 (5-19); ASPARTATE AMINO TRANSFERASE 15 U/L (14-36); BILIRUBIN,DIRECT 0.3 mg/dL (0.0-0.4); BILIRUBIN,TOTAL 0.4 mg/dL (0.2-1.3); BLOOD UREA NITROGEN 13 mg/dL (7-20); CALCIUM 9.4 mg/dL (8.4-10.2); CARBON DIOXIDE 27 mmol/L (22-30); CHLORIDE 104 mmol/L (98-107); CREATINE KINASE 40 U/L (30-135); CREATININE RESULT 0.85 mg/dL (0.52-1.25); GLUCOSE 82 mg/dL (75-110); POTASSIUM 4.2 mmol/L (3.6-5.0); SODIUM 141.2 mmol/L (137-145); TOTAL PROTEIN 6.8 g/dL (6.3-8.2)
[2017-04-16 19:45] LABS: CREATINE KINASE MB < 0.22 ng/mL (<4.55); TROPONIN I < 0.012 ng/mL
--- NOTE | 2017-04-16 19:50 | RADIOLOGY REPORT (SQ) ---
EXAM DESCRIPTION: CT HEAD WITHOUT COMPLETED DATE/TIME: 04/16/2017 7:20 pm REASON FOR STUDY: syncope episodes COMPARISON: None. TECHNIQUE: Axial images acquired through the brain without intravenous contrast. Images reviewed wi bone, brain and subdural windows. Images stored on PACS. All CT scanners at this facility use dose modulation, iterative reconstruction, and/or weight based d osing when appropriate to reduce radiation dose to as low as reasonably achievable (ALARA). [facility]: Dose Right [facility]: CareDose [facility]: Dose Right [facility]: Teradose 4D [facility]: [employer] RADIATION DOSE: 64.61 mGy. LIMITATIONS: None. FINDINGS: VENTRICLES: Normal size and contour. CEREBRUM: No masses. No hemorrhage. No midline shift. Normal grayson/white matter differentiation. N o evidence for acute infarction. CEREBELLUM: No masses. No hemorrhage. No alteration of density. No evidence for acute infarction. EXTRAAXIAL SPACES: No fluid collections. No masses. ORBITS AND GLOBE: No intra- or extraconal masses. Normal contour of globe without masses. CALVARIUM: No fracture. PARANASAL SINUSES: Mild right maxillary and ethmoid fluid - mucosal thickening. SOFT TISSUES: No mass or hematoma. OTHER: No other significant finding. IMPRESSION: No acute intracranial findings.Mild right maxillary and ethmoid sinus fluid - mucosal th ickening. TECHNICAL DOCUMENTATION: JOB ID: [id number] Quality ID # [id number]: Final reports with documentation of one or more dose reduction techniques (e.g., Au tomated exposure control, adjustment of the mA and/or kV according to patient size, use of iterative reconstruction technique) 2010 [employer]- All Rights Reserved
--- NOTE | 2017-04-16 19:56 | RADIOLOGY REPORT (SQ) ---
EXAM DESCRIPTION: CHEST PA/LAT COMPLETED DATE/TIME: 04/16/2017 7:18 pm REASON FOR STUDY: syncope COMPARISON: None. EXAM PARAMETERS: NUMBER OF VIEWS: two views TECHNIQUE: Digital Frontal and Lateral radiographic views of the chest acquired. RADIATION DOSE: NA LIMITATIONS: none FINDINGS: LUNGS AND PLEURA: No opacities, masses or pneumothorax. No pleural effusion. MEDIASTINUM AND HILAR STRUCTURES: No masses or contour abnormalities. HEART AND VASCULAR STRUCTURES: Heart normal size. No evidence for failure. BONES: No acute findings. HARDWARE: None in the chest. OTHER: No other significant finding. IMPRESSION: NO SIGNIFICANT RADIOGRAPHIC FINDING IN THE CHEST. TECHNICAL DOCUMENTATION: JOB ID: [id number] [employer]- All Rights Reserved
--- NOTE | 2017-04-16 21:11 | EKG REPORT ---
SEVERITY:- NORMAL ECG - SINUS RHYTHM : Confirmed by: Jose Zamudio 16-Apr-2017 21:11:04
[2017-04-16 22:21] VITALS: BP 128/81
== END 2017-04-16 22:30 | disposition home or self-care (01) ==
LOC: ER 15:48
DX: J01.00 Acute maxillary sinusitis, unspecified (principal); N39.0 Urinary tract infection, site not specified; R55 Syncope and collapse; F17.200 Nicotine dependence, unspecified, uncomplicated
CPT/HCPCS: 36415; 70450; 71020; 80053; 81001; 82550; 82553; 84484; 84703; 85025; 85379; 93005; 93010; 99285

== ENCOUNTER 2017-07-29 20:06 | Emergency (ER) | payer SELFPAY ==
[2017-07-29] MEDS ORDERED: AZITHROMYCIN 250 MG TABLET PO ONE (22:12)
[2017-07-29] MEDS ORDERED: IPRATROPIUM/ALBUTEROL 0.5-2.5 MG/3 ML AMPUL NEB ONE (22:12)
[2017-07-29] MEDS ORDERED: PREDNISONE 20 MG TABLET PO ONE (22:12)
--- NOTE | 2017-07-29 22:17 | ER Document Report ---
HPI - HPI Patient complains to provider of: cough, sinus pain, body aches Pain Level: 2 - REPRODUCTIVE LMP: 07/21/2017 Reproductive: DENIES: : - DERM Skin Color: Normal Past Medical History - Social History Family History: Reviewed & Not Pertinent, CAD, DM, Hyperlipidemia, Hypertension , Malignancy Patient has suicidal ideation: No Patient has homicidal ideation: No - Past Medical History Cardiac Medical History: Reports: Hx Hypertension - hx of not anymore Denies: Hx Coronary Artery Disease, Hx Heart Attack Pulmonary Medical History: Reports: Hx Bronchitis, Hx Pneumonia Denies: Hx Asthma, Hx COPD Neurological Medical History: Denies: Hx Cerebrovascular Accident, Hx Seizures Endocrine Medical History: Reports: Hx Diabetes Mellitus Type 2 Renal/ Medical History: Reports: Hx Ovarian Cysts - POC. Denies: Hx Peritoneal Dialysis GI Medical History: Reports: Hx Irritable Bowel Musculoskeltal Medical History: Denies Hx Arthritis Psychiatric Medical History: Reports: Hx Anxiety, Hx Attention Deficit Hyperactivity Disorder - ADD, Hx Depression Past Surgical History: Reports: Hx Adenoidectomy, Hx Cholecystectomy, Hx Myringotomy, Hx Tonsillectomy. Denies: Hx Hysterectomy - Immunizations Immunizations up to date: Yes Hx Diphtheria, Pertussis, Tetanus Vaccination: Yes Vertical Provider Document - INFECTION CONTROL TRAVEL OUTSIDE OF THE [place] IN LAST 30 DAYS: No - RESPIRATORY O2 Sat by Pulse Oximetry: 99 Course - Vital Signs Vital signs: Temp Pulse Resp BP Pulse Ox 98.8 F 92 22 H 154/81 H 99 07/29/17 20:25 07/29/17 20:25 07/29/17 20:25 07/29/17 20:25 07/29/17 20:25 Discharge - Discharge Clinical Impression: Cough, Wheezing, Sinus pressure Condition: Stable Disposition: HOME, SELF-CARE Additional Instructions: Your examination is consistent with an upper respiratory infection, probably viral, and sinus infection. Take the prednisone as prescribed to completion, take azithromycin as prescribed. Rest, hydrate. Bronchitis like this can have symptoms that last for some weeks. Stop smoking. Follow-up with primary care. Return to emergency department for any concerning or worsening symptoms including difficulty breathing. Prescriptions: Azithromycin 250 mg PO DAILY #4 tablet Prednisone [Deltasone 10 mg Tablet] 10 mg PO ASDIR PRN #21 tablet PRN Reason:
[2017-07-29 23:39] VITALS: BP 140/73
== END 2017-07-29 23:40 | disposition home or self-care (01) ==
LOC: ER 20:06
DX: R06.2 Wheezing (principal); R05 Cough; R68.89 Other general symptoms and signs; M79.1 Myalgia; I10 Essential (primary) hypertension; E11.9 Type 2 diabetes mellitus without complications; Z90.49 Acquired absence of other specified parts of digestive tract
CPT/HCPCS: 94640; 99283; J7512; J7620

== ENCOUNTER 2017-12-19 13:46 | Emergency (ER) | payer SELFPAY ==
[2017-12-19] MEDS ORDERED: IBUPROFEN 800 MG TABLET PO ONE (14:34)
--- NOTE | 2017-12-19 14:38 | ER Document Report ---
ED Flu Like - General Chief Complaint: Cold Symptoms Stated Complaint: FEVER,CHILLS,HEADACHE,BODYACHES Time Seen by Provider: 12/19/17 14:34 Mode of Arrival: Ambulatory Information source: Patient Notes: 27-year-old female presents to ED for cough cold congestion body aches fever and sore throat since this morning. She states she went to bed last night with a little bit of a cough and sneeze woke up this morning with all the other symptoms. She states she has not taken any medication since she got up and her temperature is 100.6 in the emergency room. She does have some redness to her throat does not have tonsils and adenoids. TRAVEL OUTSIDE OF THE [place] IN LAST 30 DAYS: No - HPI Onset: This morning Timing/Duration: Worse Quality of pain: Achy Severity: Severe Pain Level: 5 CO exposure: No Associated symptoms: Body/muscle aches, Chills, Nonproductive cough, Rhinnorhea , Sinus pain/drainage, Shortness of breath, Sore throat Similar symptoms previously: No Recently seen / treated by doctor: No - Related Data Allergies/Adverse Reactions: No Known Allergies Allergy (Verified 12/19/17 13:47) Past Medical History - General Information source: Patient - Social History Smoking Status: Never Smoker Cigarette use (# per day): No Chew tobacco use (# tins/day): No Smoking Education Provided: No Frequency of alcohol use: None Drug Abuse: None Lives with: Family Family History: CAD, DM, Hyperlipidemia, Hypertension, Malignancy. denies: Arthritis, COPD, CVA, Thyroid Disfunction Patient has suicidal ideation: No Patient has homicidal ideation: No - Past Medical History Cardiac Medical History: Reports: Hx Hypertension - hx of not anymore Pulmonary Medical History: Reports: Hx Bronchitis, Hx Pneumonia Neurological Medical History: Reports: None Endocrine Medical History: Reports: Hx Diabetes Mellitus Type 2 Renal/ Medical History: Reports: Hx Ovarian Cysts - POC Malignancy Medical History: Reports: None GI Medical History: Reports: None, Hx Irritable Bowel Musculoskeltal Medical History: Reports None Psychiatric Medical History: Reports: Hx Anxiety, Hx Attention Deficit Hyperactivity Disorder - ADD, Hx Depression Traumatic Medical History: Reports: None Infectious Medical History: Reports: None Past Surgical History: Reports: Hx Adenoidectomy, Hx Cholecystectomy, Hx Myringotomy, Hx Tonsillectomy - Immunizations Immunizations up to date: Yes Hx Diphtheria, Pertussis, Tetanus Vaccination: Yes History of Influenza Vaccine for 08/2017 - 01/2018 Season: No Review of Systems - Review of Systems Constitutional: No symptoms reported, Chills, Fever, Recent illness EENT: No symptoms reported, Nose discharge, Sinus pressure, Sinus discharge, Throat pain Cardiovascular: No symptoms reported Respiratory: Cough Gastrointestinal: No symptoms reported Genitourinary: No symptoms reported Female Genitourinary: No symptoms reported Musculoskeletal: No symptoms reported Skin: No symptoms reported Hematologic/Lymphatic: No symptoms reported Neurological/Psychological: No symptoms reported Physical Exam - Vital signs Vitals: Temp Pulse Resp BP Pulse Ox 100.6 F H 100 22 H 133/71 H 99 12/19/17 13:52 12/19/17 13:52 12/19/17 13:52 12/19/17 13:52 12/19/17 13:52 Interpretation: Normal - General General appearance: Appears well, Alert - HEENT Head: Normocephalic, Atraumatic Eyes: Normal Pupils: PERRL Ears: Normal External canal: Normal Tympanic membrane: Normal Sinus: Normal Nasal: Purulent discharge, Swelling Mouth/Lips: Normal Mucous membranes: Normal Pharynx: Erythema, Post nasal drainage. No: Exudate, Tonsillar hypertrophy - Has had a tonsillectomy Neck: Normal - Respiratory Respiratory status: No respiratory distress Chest status: Nontender Breath sounds: Nonproductive cough Chest palpation: Normal - Cardiovascular Rhythm: Regular Heart sounds: Normal auscultation Murmur: No - Abdominal Inspection: Normal Distension: No distension Bowel sounds: Normal Tenderness: Nontender Organomegaly: No organomegaly - Back Back: Normal, Nontender - Extremities General upper extremity: Normal inspection, Nontender, Normal color, Normal ROM , Normal temperature General lower extremity: Normal inspection, Nontender, Normal color, Normal ROM , Normal temperature, Normal weight bearing. No: Dexter's sign - Neurological Neuro grossly intact: Yes Cognition: Normal Orientation: AAOx4 Jairo Coma Scale Eye Opening: Spontaneous Harman Coma Scale Verbal: Oriented Jairo Coma Scale Motor: Obeys Commands Harman Coma Scale Total: 15 Speech: Normal Motor strength normal: LUE, RUE, LLE, RLE Sensory: Normal - Psychological Associated symptoms: Normal affect, Normal mood - Skin Skin Temperature: Warm Skin Moisture: Dry Skin Color: Normal Course - Re-evaluation Re-evalutation: 12/20/17 02:25 27-year-old female presented to ED with flulike symptoms. Her flu test did come back negative but patient was written a prescription for the Tamiflu as she does have flulike symptoms. Patient instructed to follow-up with her primary doctor. Side effects of Tamiflu discussed with patient and instructed patient to stop the Tamiflu if she develops nausea vomiting and diarrhea. - Vital Signs Vital signs: Temp Pulse Resp BP Pulse Ox 99.7 F 90 18 114/68 97 12/19/17 15:55 12/19/17 15:55 12/19/17 15:55 12/19/17 15:55 12/19/17 15:55 Discharge - Discharge Clinical Impression: Flu-like symptoms URI (upper respiratory infection) Qualifiers: URI type: unspecified URI Qualified Code(s): J06.9 - Acute upper respiratory infection, unspecified Disposition: HOME, SELF-CARE Instructions: Family Physicians / Practices Additional Instructions: UPPER RESPIRATORY ILLNESS: You have a viral infection of the respiratory passages -- a "cold." This common infection causes nasal congestion, drainage, and often sore throat and cough. It is highly contagious. The disease usually lasts about 10 to 14 days. There is no "cure" for the viral infection -- it must run its course. If there is a complication, such as bacterial infection in the nose, sinuses, middle ear, or bronchial tubes, antibiotics may be required. The antibiotics won't affect the virus. Drink plenty of fluids. A humidifier may help. An expectorant medication or decongestant may make you more comfortable. Use acetaminophen or ibuprofen for fever or aches. See the doctor if fever persists over two days, if there is any significant worsening of your symptoms, or if you simply fail to improve as expected. You can take Claritin and Sudafed Mucinex Tylenol and Flonase spray for your cough and cold symptoms these were all help you you can also take ibuprofen but remember this may increase her blood pressure. Please follow-up with your primary doctor. Your flu test was negative. I will write to the there Tamiflu if you would would like to take up for your flulike symptoms but your flu test did come back negative. This is not 100% active test that is why I am offering you the Tamiflu. Flu is a virus and will get better without the Tamiflu. DECONGESTANT MEDICATION: A decongestant medicine has been suggested. Often this medicine is combined in the same tablet with an antihistamine or expectorant. This type of medicine is helpful in treating a bad cold or sinus condition, as well as in treatment of the nasal congestion of hay fever. It is not of much benefit for lung infections. Decongestant medicines are related to stimulants. They can cause an increase in blood pressure and heart rate. Persons with heart disease and high blood pressure should not take decongestants without discussing this with the physician. If you develop palpitations, chest pain, headache, or tremors, stop the medicine and consult your physician. COUGH-SUPPRESSANT & EXPECTORANT MEDICATION: You are to use a cough medication as needed for relief of symptoms. This medicine is a combination of an expectorant (to make the mucous thinner and more easily "coughed up") and a cough suppressant (to reduce the frequency of coughing). The cough-suppressant medicine is related to narcotics. You may experience mild nausea and sleepiness. Some patients who are very sensitive to narcotics may have stomach pain from this medicine. Taking the medicine with food reduces these side effects. Do not drive or work with machinery until you know how this medicine affects you. The expectorant should have no side effects. Iodine-containing expectorants (such as organidin) should not be taken by persons with active thyroid disease unless approved by your doctor. Call the doctor if you develop shortness of breath, hives, rash, itching, lightheadedness, or severe nausea and vomiting. USE OF ACETAMINOPHEN (Tylenol): Acetaminophen may be taken for pain relief or fever control. It's much safer than aspirin, offering a wider range of "safe" dosages. It is safe during . Some brand names are Tylenol, Panadol, Datril, Anacin 3, Tempra, and Liquiprin. Acetaminophen can be repeated every four hours. The following are maximum recommended dosages: >89 pounds or adults 650 mg to 900 mg Acetaminophen can be repeated every four hours. Maximum dose not to exceed 4000 mg a day. FOLLOW-UP CARE: If you have been referred to a physician for follow-up care, call the physician s office for an appointment as you were instructed or within the next two days. If you experience worsening or a significant change in your symptoms, notify the physician immediately or return to the Emergency Department at any time for re-evaluation. Prescriptions: Oseltamivir Phosphate [Tamiflu 75 mg Capsule] 75 mg PO BID #10 capsule Forms: Elevated Blood Pressure, Return to Work
[2017-12-19 15:08] LABS: A TYPE INFLUENZA AG NEGATIVE (NEGATIVE); B INFLUENZA AG NEGATIVE (NEGATIVE)
[2017-12-19 15:56] VITALS: BP 114/68
== END 2017-12-19 15:56 | disposition home or self-care (01) ==
LOC: ER 13:46
DX: J06.9 Acute upper respiratory infection, unspecified (principal); R05 Cough; R50.9 Fever, unspecified; J02.9 Acute pharyngitis, unspecified; M79.1 Myalgia; J34.89 Other specified disorders of nose and nasal sinuses; R09.82 Postnasal drip; R06.02 Shortness of breath; E11.9 Type 2 diabetes mellitus without complications; Z90.89 Acquired absence of other organs
CPT/HCPCS: 87070; 87804; 87880; 99283

== ENCOUNTER 2018-02-21 17:59 | Emergency (ER) | payer SELFPAY ==
--- NOTE | 2018-02-21 18:37 | ER Document Report ---
ED General - General Stated Complaint: SYNCOPE Time Seen by Provider: 02/21/18 18:12 Mode of Arrival: Ambulatory Information source: Patient Notes: This is a 27-year-old female with a history of vasovagal syndrome, spinal stenosis, pancreatitis who presents to the emergency room after syncopal episode. Patient works at [employer] and was finishing up her break when she felt lightheaded. She went to sit and put ice on her neck. Her friend said that she was "in and out". Patient states that when she "woke up, she had felt numbness to the hands and feet bilaterally". Currently, the fate patient feels back to baseline. Patient states she has had episodes of syncope frequently ( several times a week). She has been evaluated by a home furnishings sales representative in in the past in [place] including a library monitor but her insurance has since lapsed. Patient is followed in the past by a neurosurgeon in [place] for chronic neck pain and was offered conservative management (but she has not seen his neurosurgeon for some time). Patient denies chest pain, shortness of breath. The patient does state she felt nauseated prior to the event occurring. She never fell out of the chair. She never hit her head. She denies headache. TRAVEL OUTSIDE OF THE [place] IN LAST 30 DAYS: No - HPI Onset: Just prior to arrival Onset/Duration: Sudden Quality of pain: No pain Severity: None Pain Level: Denies Associated symptoms: denies: Chest pain, Nonproductive cough, Productive cough, Fever, Shortness of breath Exacerbated by: Denies Relieved by: Denies Similar symptoms previously: Yes Recently seen / treated by doctor: No - Related Data Allergies/Adverse Reactions: No Known Allergies Allergy (Verified 12/19/17 13:47) Past Medical History - General Information source: Patient - Social History Smoking Status: Never Smoker Cigarette use (# per day): No Chew tobacco use (# tins/day): No Frequency of alcohol use: None Drug Abuse: None Lives with: Family Family History: CAD, DM, Hyperlipidemia, Hypertension, Malignancy. denies: Arthritis, COPD, CVA, Thyroid Disfunction - Past Medical History Cardiac Medical History: Reports: Hx Hypertension - hx of not anymore Denies: Hx Heart Attack Pulmonary Medical History: Reports: Hx Bronchitis, Hx Pneumonia Denies: Hx Asthma, Hx COPD Neurological Medical History: Denies: Hx Seizures Endocrine Medical History: Reports: Hx Diabetes Mellitus Type 2 Renal/ Medical History: Reports: Hx Ovarian Cysts - POC. Denies: Hx Peritoneal Dialysis GI Medical History: Reports: Hx Irritable Bowel Musculoskeltal Medical History: Denies Hx Arthritis Psychiatric Medical History: Reports: Hx Anxiety, Hx Attention Deficit Hyperactivity Disorder - ADD, Hx Depression Past Surgical History: Reports: Hx Adenoidectomy, Hx Cholecystectomy, Hx Myringotomy, Hx Tonsillectomy. Denies: Hx Hysterectomy - Immunizations Immunizations up to date: Yes Hx Diphtheria, Pertussis, Tetanus Vaccination: Yes Review of Systems - Review of Systems Constitutional: denies: Chills, Fever EENT: No symptoms reported Cardiovascular: See HPI Respiratory: No symptoms reported Gastrointestinal: No symptoms reported Genitourinary: No symptoms reported Female Genitourinary: No symptoms reported Musculoskeletal: No symptoms reported Skin: No symptoms reported Hematologic/Lymphatic: No symptoms reported Neurological/Psychological: See HPI Physical Exam - Vital signs Vitals: Resp BP Pulse Ox 24 H 141/86 H 97 02/21/18 18:13 02/21/18 18:13 02/21/18 18:13 Notes: Physical exam: GENERAL: Any 7-year-old female, alert and oriented 3, no acute distress HEAD: Atraumatic, normocephalic. EYES: Pupils equal round and reactive to light, extraocular movements intact, sclera anicteric, conjunctiva are normal. ENT: TMs normal, nares patent, oropharynx clear without exudates. Moist mucous membranes. NECK: Normal range of motion, supple without obvious mass or JVD. LUNGS: Breath sounds clear to auscultation bilaterally and equal. No wheezes rales or rhonchi. HEART: Regular rate and rhythm without murmurs, rubs or gallops. ABDOMEN: Soft, normoactive bowel sounds. No tenderness to palpation. No guarding, no rebound. No masses appreciated. EXTREMITIES: Normal range of motion, no pitting or edema. No clubbing or cyanosis. NEUROLOGICAL: Cranial nerves II through XII grossly intact. Normal speech, moving all extremities. Motor is 5/5, sensory grossly intact, cerebellar ( finger to nose) very good, reflexes are symmetrical. PSYCH: Normal mood, normal affect. SKIN: Warm, Dry, normal turgor, no rashes or lesions noted. Course - Vital Signs Vital signs: Temp Pulse Resp BP Pulse Ox 33 H 141/86 H 98 02/21/18 20:00 02/21/18 18:13 02/21/18 20:00 - Laboratory Result Diagrams: 02/21/18 18:20 02/21/18 18:20 Laboratory results interpreted by me: 02/21/18 18:20 Carbon Dioxide 32 H - EKG Interpretation by Me Rate: Normal Rhythm: NSR - KG shows normal sinus rhythm but no acute ST-T wave changes Discharge - Discharge Clinical Impression: Vasovagal syncope Condition: Stable Disposition: HOME, SELF-CARE Additional Instructions: As we discussed, your EKG looked good today. Your kidney tests, electrolytes, liver tests and anemia studies were all normal. I would like you to start making a journal each day about how many times you experience these episodes and how you feel just before these episodes and whether you ate shortly before them or not. I would like you to start following up in the [facility] which is a free clinic affiliated with the [facility]. Ultimately, you may require referral to a neurologist. I am restarting you on your gabapentin given that she been on it for the neck pain in the past. Keep in mind that gabapentin sometimes has some anti-seizure activity so in your journal, right down when you start retaking the gabapentin to see if it has any effects on these episodes. You can look up [employer] on the Internet and type been Neurontin or gabapentin and they will often times tell you the best prices in [facility]. Otherwise, [facility] tends to have the low was prices in this area If you don't have insurance: follow-up at the [facility] which is a free clinic. [address], [place] [address] Prescriptions: Gabapentin [Neurontin 100 mg Capsule] 100 mg PO Q8 #90 capsule
[2018-02-21 18:49] LABS: ABSOLUTE EOSINOPHILS # (AUTO) 0.1 10^3/uL (0.0-0.6); ABSOLUTE LYMPHOCYTES (AUTO) 3.1 10^3/uL (0.5-4.7); ABSOLUTE MONOCYTES (AUTO) 0.5 10^3/uL (0.1-1.4); ABSOLUTE NEUT (AUTO) 5.7 10^3/uL (1.7-8.2); BASOPHILS % (AUTO) 0.4 % (0-2); EOSINOPHILS % (AUTO) 1.1 % (0-6); HEMOGLOBIN 14.6 g/dL (12.0-15.5); LYMPHOCYTES % (AUTO) 32.8 % (13-45); MEAN CORPUSCULAR HEMOGLOBIN 30.8 pg (27.0-33.4); MEAN CORPUSCULAR VOLUME 91 fl (80-97); MONOCYTES % (AUTO) 5.7 % (3-13); PLATELET COUNT 226 10^3/uL (150-450); RED BLOOD COUNT 4.74 10^6/uL (3.72-5.28); RED CELL DISTRIBUTION WIDTH 13.6 % (11.5-14.0); TOTAL CELLS COUNTED % (AUTO) 100 %; WHITE BLOOD COUNT 9.5 10^3/uL (4.0-10.5)
[2018-02-21 19:04] LABS: ALANINE AMINOTRANSFERASE 29 U/L (9-52); ALBUMIN 4.1 g/dL (3.5-5.0); ALKALINE PHOSPHATASE 54 U/L (38-126); ANION GAP 7 (5-19); ASPARTATE AMINO TRANSFERASE 21 U/L (14-36); BILIRUBIN,DIRECT 0.4 mg/dL (0.0-0.4); BILIRUBIN,TOTAL 0.5 mg/dL (0.2-1.3); BLOOD UREA NITROGEN 10 mg/dL (7-20); CALCIUM 9.7 mg/dL (8.4-10.2); CARBON DIOXIDE 32 mmol/L (22-30); CHLORIDE 103 mmol/L (98-107); GLUCOSE 80 mg/dL (75-110); SODIUM 141.8 mmol/L (137-145); TOTAL PROTEIN 7.1 g/dL (6.3-8.2)
[2018-02-21 19:26] VITALS: BP 141/86
--- NOTE | 2018-02-21 21:52 | EKG REPORT ---
SEVERITY:- NORMAL ECG - SINUS RHYTHM : Confirmed by: Jose Zamudio 21-Feb-2018 21:51:38
== END 2018-02-21 20:32 | disposition home or self-care (01) ==
LOC: ER 17:59
DX: R55 Syncope and collapse (principal); R20.0 Anesthesia of skin; R11.0 Nausea; I10 Essential (primary) hypertension; E11.9 Type 2 diabetes mellitus without complications
CPT/HCPCS: 36415; 80053; 84443; 84702; 85025; 93005; 93010; 99284

== ENCOUNTER 2018-03-12 17:05 | Emergency (ER) | payer SELFPAY ==
[2018-03-12 17:24] VITALS: BP 140/65
[2018-03-12] MEDS ORDERED: LIDOCAINE 2% VISCOUS SOLN 20 ML UDCUP PO ONE (17:38)
--- NOTE | 2018-03-12 17:41 | ER Document Report ---
HPI - HPI Pain Level: 4 Notes: Patient is a 27-year-old female no significant past medical history who presents to the ED complaining of left upper dental pain to #14 and 132-3 days. Patient states that yesterday she did have a mild headache as well as some nausea, but that has since resolved. Patient states that she know she has poor dentition, but does not have insurance to see a dentist. Patient states that yesterday she noticed some swelling in that area on her face, but that has improved. She is eating and drinking without any difficulties. She is urinating normally and having normal bowel movements. Patient does admit to smoking but denies IV drug use. Denies any drug allergies. No other concerns or complaints at this time. Denies any headache, fever, head injury, neck pain , changes in vision/speech/mentation/hearing, URI, sore throat, chest pain, palpitations, syncope, cough, shortness of breath, wheeze, dyspnea, abdominal pain, nausea/vomiting/diarrhea, urinary retention, dysuria, hematuria, or rash. - ROS Systems Reviewed and Negative: Yes All other systems reviewed and negative - REPRODUCTIVE Reproductive: DENIES: : Past Medical History - Social History Smoking Status: Current Every Day Smoker Family History: CAD, DM, Hyperlipidemia, Hypertension, Malignancy. denies: Arthritis, COPD, CVA, Thyroid Disfunction - Past Medical History Cardiac Medical History: Reports: Hx Hypertension - hx of not anymore Denies: Hx Heart Attack Pulmonary Medical History: Reports: Hx Bronchitis, Hx Pneumonia Denies: Hx Asthma, Hx COPD Neurological Medical History: Denies: Hx Seizures Endocrine Medical History: Reports: Hx Diabetes Mellitus Type 2 Renal/ Medical History: Reports: Hx Ovarian Cysts - POC. Denies: Hx Peritoneal Dialysis GI Medical History: Reports: Hx Irritable Bowel Musculoskeltal Medical History: Denies Hx Arthritis Psychiatric Medical History: Reports: Hx Anxiety, Hx Attention Deficit Hyperactivity Disorder - ADD, Hx Depression Past Surgical History: Reports: Hx Adenoidectomy, Hx Cholecystectomy, Hx Myringotomy, Hx Tonsillectomy. Denies: Hx Hysterectomy - Immunizations Immunizations up to date: Yes Hx Diphtheria, Pertussis, Tetanus Vaccination: Yes Vertical Provider Document - CONSTITUTIONAL Agree With Documented VS: Yes Notes: PHYSICAL EXAMINATION: GENERAL: Well-appearing, well-nourished and in no acute distress. HEAD: Atraumatic, normocephalic. EYES: Pupils equal round and reactive to light, extraocular movements intact, sclera anicteric, conjunctiva are normal. ENT: EAC clear b/l. TM's intact b/l without erythema, fluid, or perforation. Nares patent and without discharge. oropharynx clear without exudates. No tonsilar hypertrophy or erythema. Moist mucous membranes. No sinus tenderness. Uvula midline. No palatine shift. No tongue protrusion. No respiratory compromise. Mouth: Poor dentition. + severe decay and mild gingivitis. No obvious abscess or discharge noted. No facial swelling. + tenderness to tooth #13-14 NECK: Normal range of motion, supple without lymphadenopathy. No rigidity/ meningismus. LUNGS: Breath sounds clear to auscultation bilaterally and equal. No wheezes rales or rhonchi. HEART: Regular rate and rhythm without murmurs, rubs, gallops. NEUROLOGICAL: Cranial nerves grossly intact. Normal speech, normal gait. Normal sensory, motor exams PSYCH: Normal mood, normal affect. SKIN: Warm, Dry, normal turgor, no rashes or lesions noted. - INFECTION CONTROL TRAVEL OUTSIDE OF THE [place] IN LAST 30 DAYS: No Course - Re-evaluation Re-evalutation: 03/12/18 17:40 Patient is an afebrile, well-hydrated, 27-year-old female who presents to the ED with dental pain to #13 and 14, suspect nerve root etiology versus infection. Vitals are acceptable. PE is otherwise unremarkable. No labs or imaging warranted at this time based on H&P. Patient was given viscous lidocaine and a prescription for penicillin. Low suspicion for any meningitis, sepsis, peritonsillar/pharyngeal abscess, respiratory compromise, Dario's, temporal arteritis, or other emergent systemic condition at this time. Patient is aware this condition can change from initial presentation and she needs to monitor symptoms closely. Conservative measures otherwise for symptoms. Call to schedule an appointment with a dentist for further evaluation and management. Recheck with your PCM this week as well. Return to the ED with any worsening/concerning symptoms otherwise as reviewed in discharge. Patient is in agreement. - Vital Signs Vital signs: Temp Pulse Resp BP Pulse Ox 97.9 F 70 16 140/65 H 100 03/12/18 17:22 03/12/18 17:22 03/12/18 17:22 03/12/18 17:22 03/12/18 17:22 Discharge - Discharge Clinical Impression: Pain, dental Condition: Stable Disposition: HOME, SELF-CARE Instructions: Toothache ([facility]), Penicillin V K ([facility]) Additional Instructions: [place] and floss twice daily Maintain fluid intake Take antibiotics as directed Mouthwash, salt water gargles, peroxide rinse as needed Tylenol/ibuprofen as needed Recheck with PCM this week Call today/tomorrow and schedule an appointment with your dentist for further evaluation Return to the ED with any worsening symptoms and/or development of fever, headache, facial swelling, swelling of lips/tongue/throat, trouble swallowing, drooling, hoarseness, neck pain/stiffness, chest pain, palpitations, syncope, shortness of breath, trouble breathing, abdominal pain, n/v/d, numbness/tingling , or other worsening symptoms that are concerning to you. Prescriptions: Penicillin V Potassium [Penicillin Vk 250 mg Tablet] 500 mg PO BID #40 tablet Forms: Elevated Blood Pressure, Smoking Cessation Education Referrals: [facility] [Provider Group] - Follow up in 1 week
== END 2018-03-12 18:02 | disposition home or self-care (01) ==
LOC: ER 17:05
DX: K08.9 Disorder of teeth and supporting structures, unspecified (principal); F17.200 Nicotine dependence, unspecified, uncomplicated; I10 Essential (primary) hypertension; E11.9 Type 2 diabetes mellitus without complications; Z90.49 Acquired absence of other specified parts of digestive tract
CPT/HCPCS: 99282; J3490

== ENCOUNTER 2018-09-07 18:03 | Emergency (ER) | payer SELFPAY ==
--- NOTE | 2018-09-07 18:33 | ER Document Report ---
ED General - General Chief Complaint: Fainting Stated Complaint: SYNCOPAL EPISODE Time Seen by Provider: 09/07/18 18:32 Notes: 27-year-old female patient emergency department chief complaint of syncopal episode. Patient states that she has been evaluated on multiple times for syncope. This is nothing new to her. States that she passes out all the time. Approximately 1 year ago she was under the care of a climatology teacher and a neurologist. Lost her health care. Has not seen anybody since that time. Has had a couple of episodes since then. Denies any chest pain, shortness of breath , head pain, confusion or other issues. To lose weight. Has lost a lot of weight over the last couple of years. TRAVEL OUTSIDE OF THE [place] IN LAST 30 DAYS: No - HPI Onset: Just prior to arrival Onset/Duration: Sudden Quality of pain: No pain Severity: Mild Pain Level: Denies - Related Data Allergies/Adverse Reactions: No Known Allergies Allergy (Verified 12/19/17 13:47) Past Medical History - General Information source: Patient - Social History Smoking Status: Current Every Day Smoker Frequency of alcohol use: None Drug Abuse: None Lives with: Family Family History: CAD, DM, Hyperlipidemia, Hypertension, Malignancy. denies: Arthritis, COPD, CVA, Thyroid Disfunction - Past Medical History Cardiac Medical History: Reports: Hx Hypertension - hx of not anymore Denies: Hx Heart Attack Pulmonary Medical History: Reports: Hx Bronchitis, Hx Pneumonia Denies: Hx Asthma, Hx COPD Neurological Medical History: Denies: Hx Seizures Endocrine Medical History: Reports: Hx Diabetes Mellitus Type 2 Renal/ Medical History: Reports: Hx Ovarian Cysts - POC. Denies: Hx Peritoneal Dialysis GI Medical History: Reports: Hx Irritable Bowel Musculoskeletal Medical History: Denies Hx Arthritis Psychiatric Medical History: Reports: Hx Anxiety, Hx Attention Deficit Hyperactivity Disorder - ADD, Hx Depression Past Surgical History: Reports: Hx Adenoidectomy, Hx Cholecystectomy, Hx Myringotomy, Hx Tonsillectomy. Denies: Hx Hysterectomy - Immunizations Immunizations up to date: Yes Hx Diphtheria, Pertussis, Tetanus Vaccination: Yes Review of Systems - Review of Systems Notes: Constitutional: denies: Chills, Diaphoresis, Fever, Malaise, Weakness EENT: denies: Eye discharge, Blurred vision, Tearing, Double vision, Nose congestion, Nose discharge, Throat swelling, Mouth pain Cardiovascular: denies: Palpitations, Heart racing, Orthopnea, Dyspnea, Chest pain. Does complain of syncope Respiratory: denies: Cough, Hurts to breathe, Wheezing, Shortness of breath Gastrointestinal: denies: Abdominal pain, Diarrhea, Nausea, Vomiting, Black stools, bright red blood in stool Genitourinary: denies: Burning, Dysuria, Discharge, Frequency, Flank pain, Hematuria Musculoskeletal: denies: Joint pain, Joint swelling, Muscle pain, Muscle stiffness, back pain Hematologic/Lymphatic: denies: Anemia, Easy bleeding, Easy bruising, Blood clots Neurological/Psychological: denies: Confusion, Dementia, Depression, Loss of consciousness Skin: No lesions, no masses, no skin breakdown, no abscesses Physical Exam - Vital signs Vitals: Resp Pulse Ox 13 100 09/07/18 18:20 09/07/18 18:20 Interpretation: Normal - General General appearance: Appears well, Alert - HEENT Head: Normocephalic, Atraumatic Eyes: Normal Pupils: PERRL - Respiratory Respiratory status: No respiratory distress Chest status: Nontender Breath sounds: Normal Chest palpation: Normal - Cardiovascular Rhythm: Regular Heart sounds: Normal auscultation Murmur: No - Abdominal Inspection: Normal Distension: No distension Bowel sounds: Normal Tenderness: Nontender Organomegaly: No organomegaly - Back Back: Normal, Nontender - Extremities General upper extremity: Normal inspection, Nontender, Normal color, Normal ROM , Normal temperature General lower extremity: Normal inspection, Nontender, Normal color, Normal ROM , Normal temperature, Normal weight bearing. No: Dexter's sign - Neurological Neuro grossly intact: Yes Cognition: Normal Orientation: AAOx4 [place] Coma Scale Eye Opening: Spontaneous [place] Coma Scale Verbal: Oriented [place] Coma Scale Motor: Obeys Commands [place] Coma Scale Total: 15 Speech: Normal Motor strength normal: LUE, RUE, LLE, RLE Sensory: Normal - Psychological Associated symptoms: Normal affect, Normal mood - Skin Skin Temperature: Warm Skin Moisture: Dry Skin Color: Normal Course - Re-evaluation Re-evalutation: 09/07/18 21:24 This is a well-appearing 27-year-old female with no signs of trauma. Completely normal exam. Had a long discussion with the patient with regards to her disease with significant obesity. I have advised that she will also need to be seen by climatology teacher and possibly a neurologist. I have no immediate explanation for her recurrent syncopal issues however this is been going on for several years now. I do not think patient needs to be admitted at this time. Her cardiac labs are normal. A1c is normal. Thyroid function normal. EKG normal. Comfortable discharging at this time in stable condition. Of note, patient does have a positive nitrite but no other pathology and denies any dysuria so we will culture the urine at this time. Laboratory 09/07/18 09/07/18 09/07/18 19:45 19:45 19:45 WBC 11.1 H RBC 4.56 Hgb 14.3 Hct 42.2 MCV 93 MCH 31.4 MCHC 33.9 RDW 13.5 Plt Count 191 Seg Neutrophils % 61.8 Lymphocytes % 30.6 Monocytes % 5.0 Eosinophils % 2.1 Basophils % 0.5 Absolute Neutrophils 6.8 Absolute Lymphocytes 3.4 Absolute Monocytes 0.6 Absolute Eosinophils 0.2 Absolute Basophils 0.1 Sodium 141.1 Potassium 4.0 Chloride 105 Carbon Dioxide 29 Anion Gap 7 BUN 10 Creatinine 0.81 Est GFR ( Amer) > 60 Est GFR (Non-Af Amer) > 60 Glucose 95 Hemoglobin A1c % 5.0 Calcium 9.2 Total Bilirubin 0.4 Direct Bilirubin 0.2 Neonat Total Bilirubin Not Reportable Neonat Direct Bilirubin Not Reportable Neonat Indirect Bili Not Reportable AST 15 ALT 20 Alkaline Phosphatase 47 Troponin I Total Protein 6.6 Albumin 3.9 TSH Free T4 Beta HCG, Quant < 2.39 Total Beta HCG NEGATIVE Urine Color Urine Appearance Urine pH Ur Specific [place] Urine Protein Urine Glucose (UA) Urine Ketones Urine Blood Urine Nitrite Urine Bilirubin Urine Urobilinogen Ur Leukocyte Esterase Urine WBC (Auto) Urine RBC (Auto) Urine Bacteria (Auto) Squamous Epi Cells Auto Urine Mucus (Auto) Urine Ascorbic Acid 09/07/18 09/07/18 09/07/18 19:45 19:45 19:55 WBC RBC Hgb Hct MCV MCH MCHC RDW Plt Count Seg Neutrophils % Lymphocytes % Monocytes % Eosinophils % Basophils % Absolute Neutrophils Absolute Lymphocytes Absolute Monocytes Absolute Eosinophils Absolute Basophils Sodium Potassium Chloride Carbon Dioxide Anion Gap BUN Creatinine Est GFR ( Amer) Est GFR (Non-Af Amer) Glucose Hemoglobin A1c % Calcium Total Bilirubin Direct Bilirubin Neonat Total Bilirubin Neonat Direct Bilirubin Neonat Indirect Bili AST ALT Alkaline Phosphatase Troponin I < 0.012 Total Protein Albumin TSH 1.98 Free T4 0.91 Beta HCG, Quant Total Beta HCG Urine Color YELLOW Urine Appearance SLIGHTLY-CLOUDY Urine pH 6.0 Ur Specific [place] 1.021 Urine Protein NEGATIVE Urine Glucose (UA) NEGATIVE Urine Ketones NEGATIVE Urine Blood NEGATIVE Urine Nitrite POSITIVE H Urine Bilirubin NEGATIVE Urine Urobilinogen NEGATIVE Ur Leukocyte Esterase NEGATIVE Urine WBC (Auto) 1 Urine RBC (Auto) 0 Urine Bacteria (Auto) 1+ Squamous Epi Cells Auto 1 Urine Mucus (Auto) MOD Urine Ascorbic Acid NEGATIVE - Vital Signs Vital signs: Temp Pulse Resp BP Pulse Ox 22 H 141/86 H 100 09/07/18 19:01 09/07/18 19:00 09/07/18 19:01 - Laboratory Result Diagrams: 09/07/18 19:45 09/07/18 19:45 Laboratory results interpreted by me: 09/07/18 09/07/18 19:45 19:55 WBC 11.1 H Urine Nitrite POSITIVE H - EKG Interpretation by Me EKG shows normal: Sinus rhythm, [place], Intervals, QRS Complexes, ST-T Waves Discharge - Discharge Clinical Impression: Syncope and collapse Condition: Good Disposition: HOME, SELF-CARE Instructions: Syncopal Episode ([facility]) Forms: Return to Work Referrals: PRAVEENA GARRETT MD [ACTIVE STAFF] - Follow up in 1 week WILLIAM TIJERINA MD [EMERITUS] - Follow up in 1 week
[2018-09-07 20:01] LABS: ABSOLUTE BASOPHILS # (AUTO) 0.1 10^3/uL (0.0-0.2); ABSOLUTE EOSINOPHILS # (AUTO) 0.2 10^3/uL (0.0-0.6); ABSOLUTE LYMPHOCYTES (AUTO) 3.4 10^3/uL (0.5-4.7); ABSOLUTE MONOCYTES (AUTO) 0.6 10^3/uL (0.1-1.4); ABSOLUTE NEUT (AUTO) 6.8 10^3/uL (1.7-8.2); BASOPHILS % (AUTO) 0.5 % (0-2); EOSINOPHILS % (AUTO) 2.1 % (0-6); HEMATOCRIT 42.2 % (36.0-47.0); HEMOGLOBIN 14.3 g/dL (12.0-15.5); LYMPHOCYTES % (AUTO) 30.6 % (13-45); MEAN CORPUSCULAR HEMOGLOBIN 31.4 pg (27.0-33.4); MEAN CORPUSCULAR HGB CONC 33.9 g/dL (32.0-36.0); MEAN CORPUSCULAR VOLUME 93 fl (80-97); PLATELET COUNT 191 10^3/uL (150-450); RED BLOOD COUNT 4.56 10^6/uL (3.72-5.28); RED CELL DISTRIBUTION WIDTH 13.5 % (11.5-14.0); SEGMENTED NEUTROPHILS % (AUTO) 61.8 % (42-78); TOTAL CELLS COUNTED % (AUTO) 100 %; WHITE BLOOD COUNT 11.1 10^3/uL (4.0-10.5)
[2018-09-07 20:17] LABS: APPEARANCE,URINE SLIGHTLY-CLOUDY; BILIRUBIN,URINE NEGATIVE (NEGATIVE); COLOR,URINE YELLOW; GLUCOSE, URINE NEGATIVE (NEGATIVE); KETONES,URINE NEGATIVE (NEGATIVE); LEUKOCYTE ESTERASE,URINE NEGATIVE (NEGATIVE); NITRITE,URINE POSITIVE (NEGATIVE); PROTEIN,URINE NEGATIVE (NEGATIVE); URINE SPECIFIC GRAVITY 1.021; UROBILINOGEN,URINE NEGATIVE mg/dL (<2.0)
[2018-09-07 20:20] LABS: ALANINE AMINOTRANSFERASE 20 U/L (9-52); ALBUMIN 3.9 g/dL (3.5-5.0); ALKALINE PHOSPHATASE 47 U/L (38-126); ANION GAP 7 (5-19); ASPARTATE AMINO TRANSFERASE 15 U/L (14-36); BILIRUBIN,DIRECT 0.2 mg/dL (0.0-0.4); BILIRUBIN,TOTAL 0.4 mg/dL (0.2-1.3); BLOOD UREA NITROGEN 10 mg/dL (7-20); CALCIUM 9.2 mg/dL (8.4-10.2); CARBON DIOXIDE 29 mmol/L (22-30); CHLORIDE 105 mmol/L (98-107); GLUCOSE 95 mg/dL (75-110); SODIUM 141.1 mmol/L (137-145); TOTAL PROTEIN 6.6 g/dL (6.3-8.2)
[2018-09-07 20:37] LABS: FREE T4 (FREE THYROXINE) 0.91 ng/dL (0.78-2.19)
[2018-09-07 20:51] LABS: THYROID STIMULATING HORMONE 1.98 uIU/mL (0.47-4.68)
--- NOTE | 2018-09-07 21:38 | EKG REPORT ---
SEVERITY:- NORMAL ECG - SINUS RHYTHM : Confirmed by: Armen Pino MD 07-Sep-2018 21:38:20
[2018-09-07 21:48] VITALS: BP 130/72
== END 2018-09-07 21:47 | disposition home or self-care (01) ==
LOC: ER 18:03
DX: R55 Syncope and collapse (principal); F17.200 Nicotine dependence, unspecified, uncomplicated; I10 Essential (primary) hypertension; E11.9 Type 2 diabetes mellitus without complications; Z90.49 Acquired absence of other specified parts of digestive tract
CPT/HCPCS: 36415; 80053; 81001; 83036; 84439; 84443; 84484; 84702; 85025; 87086; 87088; 87186; 93005; 93010; 99284

== ENCOUNTER 2019-02-08 20:05 | Emergency (ER) | payer MEDICAID ==
[2019-02-08] MEDS ORDERED: ACETAMINOPHEN 325 MG TABLET PO ONE (20:08)
--- NOTE | 2019-02-08 21:14 | RADIOLOGY REPORT (SQ) ---
3 VIEWS OF THE LEFT ANKLE HISTORY: Joint pain. COMPARISON: None. FINDINGS: The ankle mortise is preserved on these nonstress views. No acute fractures seen. Diffuse swelling overlying the left ankle. No radiopaque foreign body is identified. IMPRESSION: No acute fracture or dislocation.
--- NOTE | 2019-02-08 22:41 | ER Document Report ---
HPI - HPI Time Seen by Provider: 02/08/19 21:48 Pain Level: 4 Notes: Patient is an otherwise healthy 28-year-old female who presents with chief complaints of left ankle pain. Patient reports she was walking through her home when she twisted her ankle just prior to arrival. - REPRODUCTIVE Reproductive: DENIES: : - MUSCULOSKELETAL Musculoskeletal: REPORTS: Extremity pain Past Medical History - General Information source: Patient - Social History Smoking Status: Current Every Day Smoker Frequency of alcohol use: None Drug Abuse: None Family History: CAD, DM, Hyperlipidemia, Hypertension, Malignancy. denies: Arthritis, COPD, CVA, Thyroid Disfunction Patient has suicidal ideation: No Patient has homicidal ideation: No - Past Medical History Cardiac Medical History: Reports: Hx Hypertension - hx of not anymore Denies: Hx Heart Attack Pulmonary Medical History: Reports: Hx Bronchitis, Hx Pneumonia Denies: Hx Asthma, Hx COPD Neurological Medical History: Denies: Hx Seizures Endocrine Medical History: Reports: Hx Diabetes Mellitus Type 2 Renal/ Medical History: Reports: Hx Ovarian Cysts - POC. Denies: Hx Peritoneal Dialysis GI Medical History: Reports: Hx Irritable Bowel Musculoskeletal Medical History: Denies Hx Arthritis Psychiatric Medical History: Reports: Hx Anxiety, Hx Attention Deficit Hyperactivity Disorder - ADD, Hx Depression Past Surgical History: Reports: Hx Adenoidectomy, Hx Cholecystectomy, Hx Myringotomy, Hx Tonsillectomy. Denies: Hx Hysterectomy - Immunizations Immunizations up to date: Yes Hx Diphtheria, Pertussis, Tetanus Vaccination: Yes Vertical Provider Document - CONSTITUTIONAL Notes: PHYSICAL EXAMINATION: GENERAL: Well-appearing, well-nourished and in no acute distress. HEAD: Atraumatic, normocephalic. EYES: Pupils equal round extraocular movements intact, conjunctiva are normal. ENT: Nares patent NECK: Normal range of motion LUNGS: No respiratory distress Musculoskeletal: Normal range of motion NEUROLOGICAL: Mild swelling without erythema or ecchymosis noted to left lateral ankle. Normal dorsalis pedis pulse, normal motor and sensation distal to injury, cap refill less than 3 seconds. PSYCH: Normal mood, normal affect. SKIN: Warm, Dry, normal turgor, no rashes or lesions noted. - INFECTION CONTROL TRAVEL OUTSIDE OF THE [place] IN LAST 30 DAYS: No Course - Re-evaluation Re-evalutation: X-rays negative for any acute findings to include fracture or dislocation. Likely ankle sprain. Patient will be given ankle stirrup splint, crutches and discharged home. - Vital Signs Vital signs: Temp Pulse Resp BP Pulse Ox 98.6 F 96 22 H 147/83 H 96 02/08/19 20:11 02/08/19 20:11 02/08/19 20:11 02/08/19 20:11 02/08/19 20:11 Procedures - Immobilization Left ankle Pre-Proc Neuro Vasc Exam: Normal Immobilizer type: Ankle stirrup, Crutches Performed by: PCT Post-Proc Neuro Vasc Exam: Normal Alignment checked and good: Yes Discharge - Discharge Clinical Impression: Ankle sprain Qualifiers: Encounter type: initial encounter Involved ligament of ankle: unspecified ligament Laterality: left Qualified Code(s): S93.402A - Sprain of unspecified ligament of left ankle, initial encounter Condition: Stable Disposition: HOME, SELF-CARE Additional Instructions: SPRAINED ANKLE: Your sprained ankle results from stretching or tearing of the ligaments which support the ankle. This usually results from twisting the foot inward and under. The ligaments will require time and protection in order to heal properly. Many ankle sprains are quite disabling, and should be taken seriously. The usual treatment for an ankle sprain is cold packs; protection with tape, splints, or wraps; elevation; and staying off the ankle for at least a day. As the ankle improves, you can walk IF it's not painful to bear weight. Sports are best postponed until healing is complete. More serious sprains usually require strengthening exercises after early healing. Your physician has assessed the seriousness of the ligament injury to your ankle. However, the treatment may change, depending on how your ankle progresses. If further exams were recommended, it is important that you follow through. Call the doctor if your foot becomes numb, painful, or severely swollen. ANKLE STIRRUP SPLINT: You are to use an ankle brace called a stirrup splint. This type of brace allows you to place greater stresses on the ankle without risk of re-injury, and is often used for more severe ankle injuries such as avulsion fractures and ligament ruptures. The splint can be worn over a sock or tape. For proper support, wear the splint with a shoe over it. It's important that the splint fit properly. Adjust the heel tension, if needed. If your splint has air bladders, peel back the bottom of each air bladder, then move the Velcro attachment of the heel strap up or down. Air bladder pressure can be adjusted by pulling up the valve at the top, threading the air tube down into the main bladder, then blowing air into the bladder or squeezing it out. The two sides of the stirrup can be moved forward or back on your ankle by changing the attachment of the main straps. If you are unable to use the ankle comfortably in the splint, return for re-evaluation. USE OF CRUTCHES: The doctor has recommended that you not bear weight at this time. You will need to use crutches. Adjust the crutches so the tops come to about two inches under the armpit while you are standing upright. Use your hands -- not your armpits -- to support your weight. To get into a chair, support yourself with one crutch on the injured side. Hold the chair with the other hand, then lower yourself while putting all your weight on the good leg. Going up stairs is `good leg up, step up, then bring up crutches and bad leg.' Down stairs is `bad leg and crutches down, then bring good leg down.' If you develop numbness or swelling in an arm or hand, you are using the crutches incorrectly. Return if you are having any problems with the crutches. ICE & ELEVATION: Apply ice packs frequently against the painful area. Many different schedules are recommended, such as "20 minutes on, 20 minutes off" or "one hour ice, two hours rest." If you need to work, you may need to go longer between ice treatments. You should plan to have the area ice packed AT LEAST one-fourth of the time. The ice should be applied over the wrap, tape, or splint, or over a layer of cloth -- not directly against the skin. Some ice bags have a built-in cloth and can be put directly on the skin. Your injured part should be elevated as much as possible over the next 48 hours. Try to keep the injury above the level of the heart. Avoid use of the injured area. Elevation and rest will decrease the swelling. FOLLOW-UP CARE: If you have been referred to a physician for follow-up care, call the physicians office for an appointment as you were instructed or within the next two days. If you experience worsening or a significant change in your symptoms, notify the physician immediately or return to the Emergency Department at any time for re-evaluation. Forms: Return to Work
[2019-02-08 23:19] VITALS: BP 123/52
== END 2019-02-08 23:13 | disposition home or self-care (01) ==
LOC: ER 20:05
DX: S93.402A Sprain of unspecified ligament of left ankle, initial encounter (principal); X50.0XXA Overexertion from strenuous movement or load, initial encounter; F17.200 Nicotine dependence, unspecified, uncomplicated; I10 Essential (primary) hypertension; E11.9 Type 2 diabetes mellitus without complications; Z90.49 Acquired absence of other specified parts of digestive tract
CPT/HCPCS: 99283; 73610; L1902

== ENCOUNTER 2019-04-05 11:04 | Emergency (ER) | payer MEDICAID ==
--- NOTE | 2019-04-05 11:38 | ER Document Report ---
HPI - HPI Patient complains to provider of: right side neck and shoulder pain Time Seen by Provider: 04/05/19 11:18 Onset: This morning Onset/Duration: Persistent Quality of pain: Achy Severity: Severe Pain Level: 4 Context: Patient presents emergency department with complaints of right sided neck and shoulder pain. She reports it was a little bit stiff last night when she went to bed but this morning when she woke up pain was increased. She reports she tosses and turns at night. She reports pain with movement. She denies other symptoms such as fever vomiting diarrhea although she complains of some nausea from the pain. . Denies trauma. 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 She reports she has neuropathy she is under the care of a neurosurgeon that is in [place]. Patient took gabapentin and naproxen prior to arrival. Associated Symptoms: None Exacerbated by: Movement Relieved by: Denies Similar symptoms previously: No Recently seen / treated by doctor: No - CONSTITUTIONAL Constitutional: DENIES: Fever, Chills - REPRODUCTIVE LMP: 03/17/19 Reproductive: DENIES: : Past Medical History - General Information source: Patient Last Menstrual Period: 03/17/19 reports she is sexually active no control - Social History Smoking Status: Current Every Day Smoker Cigarette use (# per day): Yes Chew tobacco use (# tins/day): No Frequency of alcohol use: None Drug Abuse: None Occupation: [employer] Family History: CAD, DM, Hyperlipidemia, Hypertension, Malignancy. denies: Arthritis, COPD, CVA, Thyroid Disfunction Patient has suicidal ideation: No Patient has homicidal ideation: No - Past Medical History Cardiac Medical History: Reports: Hx Hypertension - hx of not anymore Denies: Hx Heart Attack Pulmonary Medical History: Reports: Hx Bronchitis, Hx Pneumonia Denies: Hx Asthma, Hx COPD Neurological Medical History: Denies: Hx Seizures Endocrine Medical History: Reports: Hx Diabetes Mellitus Type 2 Renal/ Medical History: Reports: Hx Ovarian Cysts - POC. Denies: Hx Peritoneal Dialysis GI Medical History: Reports: Hx Irritable Bowel Musculoskeletal Medical History: Denies Hx Arthritis Psychiatric Medical History: Reports: Hx Anxiety, Hx Attention Deficit Hyperactivity Disorder - ADD, Hx Depression Past Surgical History: Reports: Hx Adenoidectomy, Hx Cholecystectomy, Hx Myringotomy, Hx Tonsillectomy. Denies: Hx Hysterectomy - Immunizations Immunizations up to date: Yes Hx Diphtheria, Pertussis, Tetanus Vaccination: Yes Vertical Provider Document - CONSTITUTIONAL Agree With Documented VS: Yes Exam Limitations: No Limitations General Appearance: WD/WN, Mild Distress - winces with movement of head turning side/side - INFECTION CONTROL TRAVEL OUTSIDE OF THE [place] IN LAST 30 DAYS: No - HEENT HEENT: Atraumatic, Normocephalic. negative: Conjuctival Injection, Pharyngeal Erythema, Tympanic Membrane Red - NECK Neck: Normal Inspection - Denies vertebral tenderness. Complains of pain when I turn her head side to side. no erythema, no warmth, no obvious swelling or deformity. negative: Lymphadenopathy-Left, Lymphadenopathy-Right - RESPIRATORY Respiratory: Breath Sounds Normal, No Respiratory Distress - CARDIOVASCULAR Cardiovascular: Regular Rate - BACK Back: Normal Inspection - MUSCULOSKELETAL/EXTREMETIES Musculoskeletal/Extremeties: MAOSMIN FROM - NEURO Level of Consciousness: Awake, Alert, Appropriate Motor/Sensory: No Motor Deficit - good strong marriage therapist bilaterally. negative: Weak Motor Strength RUE, Weak Motor Strength LUE - DERM Integumentary: Warm Adult Front & Back Diagram: 1 - reports area ttp Course - Re-evaluation Re-evalutation: 04/05/19 11:49 pt is unsure of will do hcg before proceeding with medical management, warm pack placed 04/05/19 12:43 HCG neg. Patient received Toradol and muscle relaxant. Also placed heat pack on the side of her neck. She reports pain is much better patient is moving her head from right to left without problems. She was instructed on Flexeril. She was instructed Flexeril will also make her very tired when taken with gabapentin. She was instructed to follow-up with her neurosurgeon on Sunday. She verbalized understanding to all instructions. - Vital Signs Vital signs: Temp Pulse Resp BP Pulse Ox 98.1 F 87 20 137/78 H 96 04/05/19 11:13 04/05/19 11:13 04/05/19 11:13 04/05/19 11:13 04/05/19 11:13 Discharge - Discharge Clinical Impression: Neck pain on right side Condition: Stable Disposition: HOME, SELF-CARE Instructions: Muscle Relaxers ([facility]), Toradol Injection ([facility]) Additional Instructions: *You have been evaluated for right sided neck and shoulder pain *warm packs as discussed *Follow up with your neurosurgeon Sunday for recheck *Take medication as prescribed *Return to ED for worsening condition, changes, needs Prescriptions: Cyclobenzaprine HCl [Flexeril 5 mg Tablet] 5 mg PO TID #15 tablet Forms: Elevated Blood Pressure, Return to Work
[2019-04-05] MEDS ORDERED: CYCLOBENZAPRINE HCL 10 MG TABLET PO ONE (12:07)
[2019-04-05] MEDS ORDERED: KETOROLAC TROMETHAMINE 60 MG/2 ML SDV IM ONE (12:07)
[2019-04-05 13:05] VITALS: BP 127/83
== END 2019-04-05 12:57 | disposition home or self-care (01) ==
LOC: ER 11:04
DX: G62.9 Polyneuropathy, unspecified (principal); M54.2 Cervicalgia; M25.511 Pain in right shoulder; R11.0 Nausea; F17.210 Nicotine dependence, cigarettes, uncomplicated; E11.9 Type 2 diabetes mellitus without complications
CPT/HCPCS: 99283; 96372; 81025; J3490; J1885

== ENCOUNTER 2019-09-02 00:06 | Emergency (ER) | payer MEDICAID ==
[2019-09-02 00:18] VITALS: BP 148/80
[2019-09-02] MEDS ORDERED: TETRACAINE HCL 0.5% OPH SOLN 0.6 ML DROPERETTE OU ONE (00:34)
[2019-09-02] MEDS ORDERED: BESIFLOXACIN HCL 0.6% OPH SUSP 5 ML BOTTLE OS ONE (00:51)
--- NOTE | 2019-09-02 00:58 | ER Document Report ---
HPI - HPI Patient complains to provider of: Contact lens left eye Time Seen by Provider: 09/02/19 00:21 Pain Level: 3 Context: Patient is a 28-year-old female presents to the emergency department with a contact lens stuck in her left eye. Patient voices she has attempted to get the contact out "all day." Patient voices she did remove the contacts from her right eye. She does not have her glasses with her, patient significant other drove her to the emergency room. Patient voices a foreign body sensation in her left eye. - EENT EENT: REPORTS: Eye problems - REPRODUCTIVE Reproductive: DENIES: : Past Medical History - General Information source: Patient - Social History Smoking Status: Never Smoker Family History: CAD, DM, Hyperlipidemia, Hypertension, Malignancy. denies: Arthritis, COPD, CVA, Thyroid Disfunction Patient has suicidal ideation: No Patient has homicidal ideation: No - Past Medical History Cardiac Medical History: Reports: Hx Hypertension - hx of not anymore Denies: Hx Heart Attack Pulmonary Medical History: Reports: Hx Bronchitis, Hx Pneumonia Denies: Hx Asthma, Hx COPD Neurological Medical History: Denies: Hx Seizures Endocrine Medical History: Reports: Hx Diabetes Mellitus Type 2 Renal/ Medical History: Reports: Hx Ovarian Cysts - POC. Denies: Hx Peritoneal Dialysis GI Medical History: Reports: Hx Irritable Bowel Musculoskeletal Medical History: Denies Hx Arthritis Psychiatric Medical History: Reports: Hx Anxiety, Hx Attention Deficit Hyperactivity Disorder - ADD, Hx Depression Past Surgical History: Reports: Hx Adenoidectomy, Hx Cholecystectomy, Hx Myringotomy, Hx Tonsillectomy. Denies: Hx Hysterectomy - Immunizations Immunizations up to date: Yes Hx Diphtheria, Pertussis, Tetanus Vaccination: Yes Vertical Provider Document - CONSTITUTIONAL Agree With Documented VS: Yes Notes: GENERAL: Alert, interacts well. No acute distress. HEAD: Normocephalic, atraumatic. EYES: Pupils equal, round, and reactive to light. Extraocular movements intact and painless. No proptosis noted, no erythema or swelling noted to upper or lower left eyelids. ENT: Oral mucosa moist, tongue midline. NECK: Full range of motion. Supple. Trachea midline. LUNGS: Clear to auscultation bilaterally, no wheezes, rales, or rhonchi. No respiratory distress. HEART: Regular rate and rhythm. No murmur ABDOMEN: Soft, non-tender. Non-distended. Bowel sounds present in all 4 quadrants. EXTREMITIES: Moves all 4 extremities spontaneously. No edema, normal radial and dorsalis pedis pulses bilaterally. No cyanosis. BACK: no cervical, thoracic, lumbar midline tenderness. No saddle anesthesia, normal distal neurovascular exam. NEUROLOGICAL: Alert and oriented x3. Normal speech. cranial nerves II through XII grossly intact. PSYCH: Normal affect, normal mood. SKIN: Warm, dry, normal turgor. No rashes or lesions noted. - INFECTION CONTROL TRAVEL OUTSIDE OF THE [place] IN LAST 30 DAYS: No Course - Re-evaluation Re-evalutation: 09/02/19 00:59 Tetracaine placed in left eye, then irrigated with normal saline solution. Contact easily removed with Q-tip. Fluorosceen stain then performed which showed a corneal abrasion at 2:00 over the iris. Based on patient being a contact lens wearer will treat with besifloxacin in the emergency department. - Vital Signs Vital signs: Temp Pulse Resp BP Pulse Ox 98.0 F 70 18 148/80 H 97 09/02/19 00:17 09/02/19 00:17 09/02/19 00:17 09/02/19 00:17 09/02/19 00:17 Discharge - Discharge Clinical Impression: Corneal abrasion due to contact lens Qualifiers: Laterality: left Qualified Code(s): H18.822 - Corneal disorder due to contact lens, left eye Foreign body of left eye Qualifiers: Encounter type: initial encounter Qualified Code(s): T15.92XA - Foreign body on external eye, part unspecified, left eye, initial encounter Condition: Stable Disposition: HOME, SELF-CARE Instructions: Corneal Abrasion ([facility]) Additional Instructions: As we discussed you have been seen and treated in the emergency department for a contact lens stuck in your left eye. We were able to remove it. He did sustain a corneal abrasion to your left eye. Sure you use antibiotics 1 drop in affected eye 3 times a day for the next 7 days. Follow-up with your primary care provider in the next 24 to 48 hours. Return to the emergency room for any concerns. Prescriptions: Besifloxacin HCl [Besivance 0.6% Oph Susp 5 ml] 1 drop OS TID 7 Days #1 bottle Forms: Return to Work Referrals: LEXY BENITO MD [Primary Care Provider] - Follow up as needed
[2019-09-02] MEDS ORDERED: BESIFLOXACIN HCL 0.6% OPH SUSP 5 ML BOTTLE ONE (01:02)
== END 2019-09-02 01:11 | disposition home or self-care (01) ==
LOC: ER 00:06
DX: T15.92XA Foreign body on external eye, part unspecified, left eye, initial encounter (principal); H18.822 Corneal disorder due to contact lens, left eye; H57.12 Ocular pain, left eye; X58.XXXA Exposure to other specified factors, initial encounter; I10 Essential (primary) hypertension; E11.9 Type 2 diabetes mellitus without complications
CPT/HCPCS: 99283

== ENCOUNTER 2020-01-21 14:40 | Emergency (ER) | payer OTHER, MEDICAID ==
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
[2020-01-21 18:02] VITALS: BP 138/81
== END 2020-01-21 18:11 | disposition home or self-care (01) ==
LOC: ER 14:40
DX: M54.2 Cervicalgia (principal); M54.9 Dorsalgia, unspecified; M54.5 Low back pain; M25.511 Pain in right shoulder; V43.62XA Car passenger injured in collision with other type car in traffic accident, initial encounter; F17.200 Nicotine dependence, unspecified, uncomplicated; E11.9 Type 2 diabetes mellitus without complications; I10 Essential (primary) hypertension
CPT/HCPCS: 72050; 72070; 72110; 99283

== ENCOUNTER 2020-02-11 11:22 | Emergency (ER) | payer MEDICAID, OTHER ==
--- NOTE | 2020-02-11 11:51 | ER Document Report ---
ED General - General Chief Complaint: Fever Stated Complaint: COUGH/FEVER Notes: Patient is a 29-year-old white female with no significant past medical history presents the emergency department the chief complaint of fever that began yesterday. The patient states that she works at [employer]. She states yesterday while at work she began feeling ill. She states that she had a fever. She reports with any exertion or quick motions she would get episodes of dizziness or lightheadedness. She states she feels better when sitting or resting. She admits to a few episodes of loose stool yesterday that have not progressed or continued today. She denies any cough, chest pain or shortness of breath. She denies any vomiting or abdominal pain. No recent travel or known sick contacts. TRAVEL OUTSIDE OF THE [place] IN LAST 30 DAYS: No - Related Data Allergies/Adverse Reactions: No Known Allergies Allergy (Verified 01/21/20 16:30) Past Medical History - Social History Smoking Status: Unknown if Ever Smoked Family History: CAD, DM, Hyperlipidemia, Hypertension, Malignancy. denies: Arthritis, COPD, CVA, Thyroid Disfunction Patient has suicidal ideation: No Patient has homicidal ideation: No - Past Medical History Cardiac Medical History: Reports: Hx Hypertension - hx of not anymore Denies: Hx Heart Attack Pulmonary Medical History: Reports: Hx Bronchitis, Hx Pneumonia Denies: Hx Asthma, Hx COPD Neurological Medical History: Denies: Hx Seizures Endocrine Medical History: Reports: Hx Diabetes Mellitus Type 2 Renal/ Medical History: Reports: Hx Ovarian Cysts - POC. Denies: Hx Peritoneal Dialysis GI Medical History: Reports: Hx Irritable Bowel Musculoskeletal Medical History: Denies Hx Arthritis Psychiatric Medical History: Reports: Hx Anxiety, Hx Attention Deficit Hyperactivity Disorder - ADD, Hx Depression Past Surgical History: Reports: Hx Adenoidectomy, Hx Cholecystectomy, Hx Myringotomy, Hx Tonsillectomy. Denies: Hx Hysterectomy - Immunizations Immunizations up to date: Yes Hx Diphtheria, Pertussis, Tetanus Vaccination: Yes Review of Systems - Review of Systems Constitutional: Fever Gastrointestinal: Diarrhea Neurological/Psychological: Other - Lightheadedness/dizziness -: Yes All other systems reviewed and negative Physical Exam - Vital signs Vitals: Temp Pulse Resp BP Pulse Ox 97.9 F 92 15 147/87 H 100 02/11/20 11:36 02/11/20 11:36 02/11/20 11:36 02/11/20 11:36 02/11/20 11:36 - General General appearance: Appears well, Alert In distress: None - HEENT Head: Normocephalic, Atraumatic Eyes: Normal Conjunctiva: Normal Extraocular movements intact: Yes Eyelashes: Normal Pupils: PERRL Ears: Normal External canal: Normal Tympanic membrane: Normal Sinus: Normal Nasal: Normal Mouth/Lips: Normal Mucous membranes: Normal Pharynx: Normal Neck: Normal - Respiratory Respiratory status: No respiratory distress Chest status: Nontender Breath sounds: Normal Chest palpation: Normal - Cardiovascular Rhythm: Regular Heart sounds: Normal auscultation Murmur: No - Abdominal Inspection: Normal Distension: No distension Bowel sounds: Normal Tenderness: Nontender Organomegaly: No organomegaly - Neurological Neuro grossly intact: Yes Cognition: Normal Orientation: AAOx4 [place] Coma Scale Eye Opening: Spontaneous [place] Coma Scale Verbal: Oriented [place] Coma Scale Motor: Obeys Commands [place] Coma Scale Total: 15 Speech: Normal - Psychological Associated symptoms: Normal affect, Normal mood - Skin Skin Temperature: Warm Skin Moisture: Dry Skin Color: Normal Course - Re-evaluation Re-evalutation: 02/11/20 13:22 Strep negative, flu negative, chest x-ray negative for acute process per radiologist. Patient is felt to be low risk for COVID-19. She will self quarantine at home for the next 14 days. Counseled her at length regarding the importance of return here or any ER immediately with any new, persistent or worsening symptoms. She verbalized understood and agreed. - Vital Signs Vital signs: Temp Pulse Resp BP Pulse Ox 97.9 F 92 15 147/87 H 100 02/11/20 11:36 02/11/20 11:36 02/11/20 11:36 02/11/20 11:36 02/11/20 11:36 Discharge - Discharge Clinical Impression: Viral syndrome Condition: Stable Disposition: HOME, SELF-CARE Instructions: Viral Syndrome ([facility]), Fever ([facility]) Additional Instructions: Please quarantine yourself at home for safety precautions for the next 14 days. Please return here or any ER immediately with any new, persistent or worsening symptoms.
[2020-02-11 12:08] LABS: A TYPE INFLUENZA AG NEGATIVE (NEGATIVE); B INFLUENZA AG NEGATIVE (NEGATIVE)
--- NOTE | 2020-02-11 12:19 | RADIOLOGY REPORT (SQ) ---
EXAM DESCRIPTION: CHEST SINGLE VIEW COMPLETED DATE/TIME: 02/11/2020 11:48 am REASON FOR STUDY: fever COMPARISON: None. NUMBER OF VIEWS: One view. TECHNIQUE: Single frontal radiographic view of the chest acquired. LIMITATIONS: None. FINDINGS: LUNGS AND PLEURA: No opacities, masses or pneumothorax. No pleural effusion. MEDIASTINUM AND HILAR STRUCTURES: No masses. Contour normal. HEART AND VASCULAR STRUCTURES: Heart normal in size. Normal vasculature. BONES: No acute findings. HARDWARE: None in the chest. OTHER: No other significant finding. IMPRESSION: NO SIGNIFICANT RADIOGRAPHIC FINDING IN THE CHEST. TECHNICAL DOCUMENTATION: JOB ID: [id number] 2010 [employer]- All Rights Reserved Reading location - IP/workstation name: [email or web address]
[2020-02-11 13:59] VITALS: BP 185/76
== END 2020-02-11 13:40 | disposition home or self-care (01) ==
LOC: ER 11:22
DX: B34.9 Viral infection, unspecified (principal); R50.9 Fever, unspecified; R42 Dizziness and giddiness; R19.7 Diarrhea, unspecified; I10 Essential (primary) hypertension; E11.9 Type 2 diabetes mellitus without complications
CPT/HCPCS: 71045; 87070; 87804; 87880; 99283

== ENCOUNTER → 2020-08-06 | Outpatient (CLI) | payer MEDICAID ==
--- NOTE | 2020-08-06 11:10 | RADIOLOGY REPORT (SQ) ---
EXAM DESCRIPTION: C SP 4 OR 5 VIEWS IMAGES COMPLETED DATE/TIME: 08/06/2020 10:28 am REASON FOR STUDY: CERVICAL RADICULOPATHY M54.12 RADICULOPATHY, CERVICAL REGION COMPARISON: Radiograph of the cervical spine from 01/21/2020. NUMBER OF VIEWS: Five views. TECHNIQUE: AP, lateral, obliques and odontoid radiographic images acquired of the cervical spine. LIMITATIONS: None. FINDINGS: MINERALIZATION: Normal. ALIGNMENT: There is reversal of the normal lordotic curvature of the cervical spine. There is no kelle dence of atlantoaxial dissociation on the odontoid view. VERTEBRAE: The cervical vertebral body heights are preserved. DISCS: At C6-C7 the intervertebral disc space is narrowed and there is an osteophyte that bridges the anterolateral disc space. FORAMINA: No osteophytic foraminal narrowing. LATERAL AND POSTERIOR ELEMENTS: Intact. HARDWARE: None in the spine. SOFT TISSUES: No abnormality. OTHER: No other finding. IMPRESSION: Mild degenerative spondylosis of the lumbar spine at C6-C7. TECHNICAL DOCUMENTATION: JOB ID: [id number] [facility]- All Rights Reserved Reading location - IP/workstation name: [email or web address]
== END ==
LOC: OD 10:09
PROVIDERS: ATTEND Family Medicine
DX: M54.12 Radiculopathy, cervical region (principal); M47.892 Other spondylosis, cervical region
CPT/HCPCS: 72050

== ENCOUNTER → 2020-08-26 | Outpatient (CLI) | payer MEDICAID ==
[2020-08-26 15:00] VITALS: BP 129/59
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
== END ==
LOC: RDC 13:59
PROVIDERS: ATTEND Registered Nurse
DX: Z20.828 Contact with and (suspected) exposure to other viral communicable diseases (principal); E11.9 Type 2 diabetes mellitus without complications; K58.9 Irritable bowel syndrome, unspecified; F90.9 Attention-deficit hyperactivity disorder, unspecified type; E66.01 Morbid (severe) obesity due to excess calories; F17.210 Nicotine dependence, cigarettes, uncomplicated
CPT/HCPCS: 87635; C9803; 99201; 99211